=== PATIENT | female | born 2000 | race Caucasian/White ===

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

== ENCOUNTER 2021-11-03 20:11 | Emergency (ER) | payer OTHER ==
--- OUTSIDE RECORDS SUMMARY | 2021-11-03 20:22 | XMS REPORT | Continuity of Care Document ---
:2000 Author Organization [facility] t Address [address] [place] [address] Care Team Providers Name Role Phone Jennifer Mendoza Primary Care Physician [phone] JESSI STEINER Attending Clinician Unavailable Jessi Davison Attending Clinician [phone] JENNIFER HORNRE Attending Clinician Unavailable Visit, [facility] Nurse Attending Clinician Unavailable Jennifer Mendoza Attending Clinician Low Galindo MD Attending Clinician Shilpa Rodriguez MDh Attending Clinician ERIN SIBLEY Attending Clinician Unavailable Low Galindo MD Admitting Clinician LOW GALINDO Admitting Clinician Unavailable Payers Payer Name Policy Type Policy Number Effective Date Expiration Date Ronaldo cedeño [facility] PINEDA THOMAS [id number] 2021 00:00:00 PLUS Problems Condition Condition Condition Status Onset Resolution Last Treating Co mments Source Name Details Category Date Date Treatment Clinician Date Routine Routine Disease Active Univers 7-18 [place] [facility] [place] Disease Active Univers (spontaneo (spontaneo 6-23 it y of [place] vaginal [place] 00 [facility] Single Single Disease Active Univers live live 6-23 it y of 00:00: [place] 00 [facility] Gestationa Gestationa Disease Active U nivers l l 6-23 ity of hypertensi hypertensi [place] Decreased Decreased Disease Active Uni vers platelet platelet 6-23 ity of count count 00:00: [place] [facility] Branch 39 weeks 39 weeks Disease Active Unive rs gestation gestation 6-21 ity of of of 00:00: [place] 00 [facility] Elevated Elevated Disease Active Unive rs blood blood 4-13 ity of pressure pressure 00:00: [place] reading reading 00 Medical without without Branch diagnosis diagnosis of of hypertensi hypertensi on on Chlamydia Chlamydia Disease Active 2020-03 Overview: Univers infection infection 2-21 Formattin i ty of affecting affecting 00:00: g of this [place] , , 00 note Me dical antepartum antepartum might be Branch different from the original. mirella neg Susceptibl Susceptibl Disease Active 2020-03 U nivers e to e to 1-24 ity of varicella varicella 00:00: [place] s (non-immun (non-immun 00 Me dical e), e), Branch currently currently Rubella Rubella Disease Active 2020-03 Univers non-immune non-immune 1-24 it y of status, status, 00:00: [place] antepartum antepartum 00 Me dical Branch Vomiting Vomiting Disease Active 2020-03 Unive rs or nausea or nausea 1-22 ity of of of 00:00: [place] 00 [facility] Multiparit Multiparit Disease Active 2020-03 U nivers y y 1-22 ity of 00:00: [place] 00 [facility] Branch BMI BMI Disease Active 2020-03 Univers 28.0-28.9, 28.0-28.9, 1-22 it y of adult adult 00:00: [place] [facility] Supervisio Supervisio Disease Active 2019-0 U nivers n of high n of high 2-04 ity of risk risk 00:00: [place] 00 Medi sue in second in second Bran ch trimester trimester Allergies, Adverse Reactions, Alerts Allergy Allergy Status Severity Reaction(s) Onset Inactive Treating Comm ents Source Name Type Date Date Clinician NO KNOWN Drug Active Univers ALLERGIE Class ity of S [facility] Social History Social Habit Start Date Stop Date Quantity Comments Source ASSERTION 2020-12-02 [facility] 00:00:00 [facility] Exposure to 2021-09-10 2021-09-20 Not sure [facility] SARS-CoV-2 00:00:00 08:11:00 [facility] (event) [place] Tobacco use and 2021-09-20 2021-09-20 Smokeless tobacco Un iversity of exposure 00:00:00 00:00:00 non-user [facility] Alcohol intake 2021-09-20 2021-09-20 Current [facility] 00:00:00 00:00:00 non-drinker of [facility] alcohol (finding) Branch Sex Assigned At 2000 2000 Universit y of 00:00:00 00:00:00 [facility] Smoking Status Start Date Stop Date Source Never smoked tobacco [facility] Medications Ordered Filled Start Stop Current Ordering Indication Dosage Frequency Signature Comments Components Source Medication Medication Date Date Medication? Clinician (SIG) Name Name Yes [id number] 1{tbl} Take 1 U nivers [id number] 6-23 tablet by ity of fum-folic 00:00: mouth [place] () 00 daily. Medical 27 mg iron- Branch 1 mg folic tablet docusate Yes [id number] 200mg Take 2 Un rick 100 mg 6-23 capsules ity of capsule 00:00: by mouth [place] 00 once daily Medical as needed Branch for Constipati on. ferrous Yes [id number] 325mg Take 1 Uni vers sulfate 325 6-23 tablet by ity of mg (65 mg 00:00: mouth 2 [place] iron) 00 (two) Medical tablet times Branch daily. ibuprofen Yes [id number] 600mg Take 1 U nivers 600 mg 6-23 tablet by ity of tablet 00:00: mouth [place] 00 every 6 Medical (six) Branch hours as needed (Pain). Take with food or milk. 2022-0 Yes [id number] 1{tbl} Take 1 U nivers [id number] 6-23 tablet by ity of fum-folic 00:00: mouth [place] () 00 daily. Medical 27 mg iron- Branch 1 mg folic tablet docusate 0 Yes [id number] 200mg Take 2 Un irck 100 mg 6-23 capsules ity of capsule 00:00: by mouth [place] 00 once daily Medical as needed Branch for Constipati on. ferrous 0 Yes [id number] 325mg Take 1 Uni vers sulfate 325 6-23 tablet by ity of mg (65 mg 00:00: mouth 2 [place] iron) 00 (two) Medical tablet times Branch daily. ibuprofen 0 Yes [id number] 600mg Take 1 U nivers 600 mg 6-23 tablet by ity of tablet 00:00: mouth [place] 00 every 6 Medical (six) Branch hours as needed (Pain). Take with food or milk. 0 Yes [id number] 1{tbl} Take 1 U nivers [id number] 6-23 tablet by ity of fum-folic 00:00: mouth [place] () 00 daily. Medical 27 mg iron- Branch 1 mg folic tablet docusate 0 Yes [id number] 200mg Take 2 Un rick 100 mg 6-23 capsules ity of capsule 00:00: by mouth [place] 00 once daily Medical as needed Branch for Constipati on. ferrous 0 Yes [id number] 325mg Take 1 Uni vers sulfate 325 6-23 tablet by ity of mg (65 mg 00:00: mouth 2 [place] iron) 00 (two) Medical tablet times Branch daily. ibuprofen 0 Yes [id number] 600mg Take 1 U nivers 600 mg 6-23 tablet by ity of tablet 00:00: mouth [place] 00 every 6 Medical (six) Branch hours as needed (Pain). Take with food or milk. 2021-0 Yes [id number] 1{tbl} Take 1 U nivers [id number] 6-23 tablet by ity of fum-folic 00:00: mouth [place] () 00 daily. Medical 27 mg iron- Branch 1 mg folic tablet docusate 0 Yes [id number] 200mg Take 2 Un rick 100 mg 6-23 capsules ity of capsule 00:00: by mouth [place] 00 once daily Medical as needed Branch for Constipati on. ferrous 2021-0 Yes [id number] 325mg Take 1 Uni vers sulfate 325 6-23 tablet by ity of mg (65 mg 00:00: mouth 2 [place] iron) 00 (two) Medical tablet times Branch daily. ibuprofen 2021-0 Yes [id number] 600mg Take 1 U nivers 600 mg 6-23 tablet by ity of tablet 00:00: mouth [place] 00 every 6 Medical (six) Branch hours as needed (Pain). Take with food or milk. rho(D) 2021-0 Yes 300ug 300 mcg, Univer s immune 08-25 Intramuscu ity of globulin 21:22: lar, ONCE, N[place] as (RHOGAM) 45 For 1 Medical syringe 300 dose, Branch mcg Conditiona l, Routine benzocaine- 2021-0 Yes Topical, Un rick menthol 08-25 PRN, ity of (DERMOPLAST 21:22: Starting [place] ) 20-0.5 % 43 on Mon Medical topical 08/25/21 at Branch spray 1622, Until Discontinu ed, Routine, Perineum discomfort ibuprofen 2021-0 Yes 600mg 600 mg, Univ ers (IBU) 08-25 Oral, ity of tablet 600 21:22: Q6HPRN, [place] mg 43 Starting Medical on Mon Branch 08/25/21 at 1622, Until Discontinu ed, Routine, Pain (scale 4-6) acetaminoph 2021-0 Yes 650mg 650 mg, Un rcik en 08-25 Oral, ity of (TYLENOL) 21:22: Q6HPRN, [place] tablet 650 43 Starting Medic al mg on Mon Branch 08/25/21 at 1622, Until Discontinu ed, Routine, Pain (scale 1-3) diphenhydrA 2021-0 Yes 25mg 25 mg, Univ ers MINE 08-25 Oral, ity of (BENADRYL) 21:22: Q6HPRN, [place] tablet 25 43 Starting Medica l mg on Mon Branch 08/25/21 at 1622, Until Discontinu ed, Routine, Sleep, Itching ondansetron 2021-0 Yes 4mg 4 mg, Slow Univers (ZOFRAN 08-25 IV Push, ity of (PF)) 21:22: Q8HPRN, [place] injection 4 43 Starting Medi sue mg on Mon Branch 08/25/21 at 1622, Until Discontinu ed, Routine, Nausea and Vomiting (N/V) simethicone Yes 160mg 160 mg, Un rick (GAS RELIEF 08-25 Oral, ity of (SIMETHICON 21:22: PC+HSPRN, [place] E)) 43 Starting Medical chewable on Mon tablet 160 08/25/21 at mg 1622, Until Discontinu ed, Routine, Gas docusate Yes 200mg 200 mg, Unive rs (COLACE) 08-25 Oral, ity of capsule 200 21:22: QDAILYPRN, [place] mg 43 Starting Medical on Mon Branch 08/25/21 at 1622, Until Discontinu ed, Routine, Constipati on magnesium Yes 30mL 30 mL, Univer s hydroxide 08-25 Oral, ity of (MILK OF :22: QDAILYPRN, [place] as MAGNESIA) 43 Starting Medica l 400 mg/5 mL on Mon Branch suspension 08/25/21 at 30 mL 1622, Until Discontinu ed, Routine, Constipati on morpHINE (4 2021- No 4mg 4 mg, Slow Univers mg/mL) 08-25 IV Push, ity of injection 4 18:15: 17:05 ONCE, 1 [place] mg 00 :00 dose, On Medical Mon Branch 08/25/21 at 1315, Routine oxytocin 2021- No 300mL/h 300 mL/hr, Univers (PITOCIN) 08-25 IV ity of 30 units in 16:57: 21:22 Infusion, [place] NS 500 mL 27 :45 SEE-INSTRU Medi sue IV infusion CTIONS, Branc h Starting on Mon08/25/[address] at 300 mL/hr for 1 hr then 150 mL/hr for 1 hr. & nbsp; For post delivery uterotonic
butorphanol 2021- No 1mg 1 mg, IV U nivers (STADOL) 08-25 Push, ity of injection 1 11:45: 10:40 ONCE, 1 [place] mg 00 :00 dose, On Medical [facility] Branch 08/25/21 at 0645, Routine proMETHazin 2021- No 12.5mg 12.5 mg, Univers e 08-25 IV ity of (PHENERGAN) 11:45: 11:41 Piggyback, [place] 12.5 mg in 00 :00 at 200 Medical NS 50 mL IV mL/hr Branch piggyback Administer (CNR) over 15 Minutes, ONCE, 1 dose, On Mon08/25/21 at 0645, Routine proMETHazin 2021- No 25mg 25 mg, IV Univers e 08-25 Piggyback, ity of (PHENERGAN) 07:15: 07:11 at 200 [place] as 25 mg in NS 00 :00 mL/hr Medical 50 mL IV Administer Branc h piggyback over 15 (CNR) Minutes, ONCE, 1 dose, On Mon08/25/21 at 0215, Routine butorphanol 2021- No 1mg 1 mg, IV U nivers (STADOL) 08-25 Push, ity of injection 1 07:15: 06:20 ONCE, 1 [place] mg 00 :00 dose, On Medical [facility] Branch 08/25/21 at 0215, Routine oxytocin 2021- No 2mU/min at 2-40 Un rick (PITOCIN) 08-25 mL/hr, IV ity of 30 units in 04:20: 21:22 Infusion, [place] NS 500 mL 12 :45 TITRATE, Medica l IV infusion Starting Bran ch on Mon08/24/21 at 2320, Until Mon08/25/21 at 1622, MORRIS D5W-LR IV 2021- No 1000mL at 125 Uni vers infusion 08-25 mL/hr, IV ity o f 1,000 mL 03:30: 21:22 Infusion, [place] as 00 :45 CONTINUOUS Medical , Starting Branch on Mon08/24/21 at 2230, Until Mon08/25/21 at 1622, Routine lactated 2021- No 500mL at 999 Unive rs ringers IV 08-25 mL/hr, 500 it y of infusion 03:19: 21:22 mL, IV [place] 500 mL 05 :45 Infusion, Medical PRN - SEE Branch NATALIIAIO NS, Starting on Mon08/24/21 at 2219, Until Mon08/25/21 at 1622, Routine PNV 67-iron 2020-03 Yes [id number] 1{capsu Take 1 Univers ps-folate 1-22 le} capsule by ity of no.1-dha 00:00: mouth [place] (VITAFOL 00 daily. Medical ULTRA) 29 Branch mg iron- 1 mg-200 mg Cap PNV 67-iron 2020-03 Yes [id number] 1{capsu Take 1 Univers ps-folate -22 le} capsule by ity of no.1-dha 00:00: mouth [place] (VITAFOL 00 daily. Medical ULTRA) 29 Branch mg iron- 1 mg-200 mg Cap PNV 67-iron 2020-03- No [id number] 1{capsu Take 1 Univers ps-folate 1-22 -23 le} capsule by ity of no.1-dha 00:00: 00:00 mouth [place] (VITAFOL 00 :00 daily. Medical ULTRA) 29 Branch mg iron- 1 mg-200 mg Cap PNV 67-iron 2020-03- No [id number] 1{capsu Take 1 Univers ps-folate -22 - le} capsule by ity of no.1-dha 00:00: 00:00 mouth [place] (VITAFOL 00 :00 daily. Medical ULTRA) 29 Branch mg iron- 1 mg-200 mg Cap Immunizations Ordered Filled Immunization Date Status Comments [facility] Immunization Name Name HPV9 2021 Completed University of 00:00: [facility] HPV9 2021 Completed University of 00:00: [facility] HPV9 2021 Completed University of 00:00:00 [facility] TDAP 2021-06-02 Completed University of 00:00: [facility] TDAP 2021-06-02 Completed University of 00:00: [facility] TDAP 2021-06-02 Completed University of 00:00: [facility] TDAP 2021-06-02 Completed University of 00:00:00 [facility] TDAP 2021-06-02 Completed University of 00:00: [facility] TDAP 2021-06-02 Completed University of 00:00:00 [place] [facility] Vital Signs Vital Name Observation Time Observation Value Comments Source Systolic blood 2021-09-20 13:11:00 124 mm[Hg] Univer sity of pressure [place] [facility] Diastolic blood 2021-09-20 13:11:00 81 mm[Hg] Unive rsity of pressure [place] [facility] Heart rate 2021-09-20 13:11:00 67 /min [facility] [place] [facility] Body temperature 2021-09-20 13:11:00 36.39 Meka Univ [facility] [place] [facility] Respiratory rate 2021-09-20 13:11:00 18 /min Univ [facility] [place] [facility] Body height 2021-09-20 13:11:00 170.2 cm [facility] [place] [facility] Body weight 2021-09-20 13:11:00 80.797 kg [facility] [place] [facility] BMI 2021-09-20 13:11:00 27.90 kg/m2 [facility] [place] [facility] Systolic blood 2021-09-03 16:18:00 120 mm[Hg] manual Univer sity of pressure [place] [facility] Diastolic blood 2021-09-03 16:18:00 92 mm[Hg] manual Unive rsity of pressure [place] [facility] Heart rate 2021-09-03 15:08:00 104 /min [facility] [place] [facility] Body temperature 2021-09-03 15:08:00 36.72 Meka [facility] [place] [facility] Respiratory rate 2021-09-03 15:08:00 18 /min Univ ersity [facility] [place] [facility] Body height 2021-09-03 15:08:00 170.2 cm [facility] [place] [facility] Body weight 2021-09-03 15:08:00 81.466 kg [facility] [place] [facility] BMI 2021-09-03 15:08:00 28.13 kg/m2 [facility] [place] [facility] Systolic blood 2021 16:26:00 121 mm[Hg] Univer sity of pressure [place] [facility] Diastolic blood 2021 16:26:00 82 mm[Hg] Unive rsity of pressure [place] [facility] Heart rate 2021 16:26:00 75 /min [facility] [place] [facility] Body temperature 2021 16:26:00 36.89 Meka [facility] Respiratory rate 2021 16:26:00 18 /min [facility] Oxygen saturation in 2021 16:26:00 98 /min [facility] Arterial blood by [facility] Pulse oximetry Branch Systolic blood 2021-08-24 18:13:00 135 mm[Hg] [facility] Diastolic blood 2021-08-24 18:13:00 76 mm[Hg] [facility] Heart rate 2021-08-24 18:13:00 85 /min [facility] Body temperature 2021-08-24 18:07:00 36.56 Meka [facility] Body weight 2021-08-24 18:07:00 89.472 kg [facility] Procedures Procedure Date / Time Performing Clinician Source Performed POCT URINALYSIS W/O 2021-09-03 15:30:00 Shelia Teixeira [facility] SPECIFIC GRAVITY [facility] EXTRA TUBE LAV 2021 10:58:00 Low Galindo [facility] CBC WITH DIFF 2021 09:56:00 [facility]isa [facility] VENOUS CORD GAS 2021-08-25 17:01:00 Vikas Cabral [facility] SGOT (ASPARTATE AMINO 2021-08-25 05:18:00 Ramirez [place] [facility] TRANSFER) Medical Branch CREATININE 2021-08-25 05:18:00 Ramirez [facility] ALANINE AMINO 2021-08-25 05:18:00 Ramirez [facility] TRANSFERASE(SGPT [facility] LACTATE DEHYDROGENASE 2021-08-25 05:18:00 Ramirez, [facility] URIC ACID 2021-08-25 05:18:00 Ramirez [facility] URINALYSIS 2021-08-25 05:18:00 Ramirez, [facility] PROTEIN CREAT RATIO URINE 2021-08-25 05:18:00 Linette Guzmán [facility] RANDOM [facility] CBC WITH DIFF 2021-08-25 03:37:00 JenusaitisVikas [facility] HEPATITIS B SURFACE 2021-08-25 03:37:00 JenusaitisVikas [facility] ANTIGEN [facility] HIV 1/2 AG-AB WITH REFLEX 2021-08-25 03:37:[address] [facility] GALV ONLY - SYPHILIS 2021-08-25 03:37:00 Jenusaitis cyndy [facility] IGG/IGM [facility] HB ABO GROUPING 2021-08-25 03:26:00 Jenusaitis [facility] RHO (D) IMMUNE GLOBULIN 2021-08-25 03:26:00 Bo [facility] COVID-19 (ID NOW RAPID 2021-08-25 02:29:00 Mateo [facility] TESTING) Medical Branch LAB ONLY COVID 2021-08-25 02:29:00 Mateo [facility] INTERPRETATION [facility] Encounters Start End Encounter Admission Attending Care Care Encounter Source Date/Time Date/Time Type Type Clinicians Facility Department ID 2021-10-11 2021-10-11 Outpatient R AKINGANESHPE, [facility] [id number] Univers 08:15:00 08:15:00 JESSI [id number] sumanth o [facility] 2021-10-11 2021-10-11 Outpatient R AKINSIPE, [facility] [id number] Univers 08:15:00 08:15:00 JESSI ity o [facility] 2021-09-20 2021-09-20 Outpatient R AKINSIPE, [facility] [id number] Univers 08:00:00 08:28:52 JESSI ity o [facility] 2021-09-20 2021-09-20 Routine Akinsipe, [facility] [id number] Univers 08:00:00 08:28:52 Jessi Douglass CLINICAL LABORATORY MEDICAL DIRECTOR [id number] ity of Visit REGIONAL [id number] Neri as MATERNAL [id number] Med ical & CHILD [address] [place] [address] 2021-09-20 2021-09-20 Outpatient R AKINTELLO, [facility] [id number] Univers 08:00:00 08:00:00 JESSI [id number] ity o f [facility] 2021-09-03 2021-09-03 Outpatient R HORNER [facility] [id number] Univers 10:00:00 10:39:25 JENNIFER ity o f [facility] 2021-09-03 2021-09-03 Nurse Visit, Khurram-Rmchp Nurse [facility] [id number] Univers 10:00:00 10:39:25 Visit Jennifer Horner CLINICAL LABORATORY MEDICAL DIRECTOR [id number] ity of [facility] [id number] Neri as MATERNAL [phone] [facility] ical & CHILD [address] [place] [address] 2021-08-24 2021 [facility] ALEXANDRA Galindo [id number] Univers 21:03:00 14:56:00 Encounter Low Lon SURI [id number] ity of [facility] [id number] Neri as [id number] [facility] [address] [place] 2021-08-25 2021-08-25 Anesthesia [facility] ALEXANDRA [id number] Univers 20:02:15 20:02:15 Event SURI [id number] it y of [facility] [id number] Neri as [id number] [facility] [address] [place] 2021-08-24 2021-08-24 Anesthesia [facility] ALEXANDRA [id number] Univers 21:22:37 21:22:37 Event SURI [id number] it y of [facility] [id number] Neri as [id number] [address] 2021-08-24 2021-08-24 Routine Akinsipe, [facility] [id number] Univers 13:00:00 13:20:08 Jessi Douglass CLINICAL LABORATORY MEDICAL DIRECTOR [id number] ity of Visit [facility] [id number] Neri as MATERNAL [phone] Med ical & CHILD [address] [place] [address] 2021-08-24 2021-08-24 Outpatient R OBDULIA [facility] NELSON [id number] Univers 13:00:00 13:20:08 JESSI ity o f [facility] 2021-02-11 2021-02-11 Outpatient P MARYJO [facility] [id number] [facility] 08:00:00 08:44:44 ERIN ity [facility] Results Test Description Test Time Test Comments Results Result Comments Source POCT URINALYSIS W/O SPECIFIC GRAVITY 2021-09-03 15:30:00 Test Item Value Reference Range Interpretation Comme nts POCT PH U (test code = 3254) . 5-8 POCT U LEUK EST (test code = 3263) . Negative - Negative POCT U NIT (test code = 3262) . Negative - Negative POCT U PROT (test code = 3259) trace Negative - Negative POCT U GLU (test code = 3256) negative Negative - Negative POCT U KETONE (test code = 3258) . Negative - Negative POCT U BLD (test code = 3257) . Negative - Negative [facility] with [id number] 11:06:47 Test Item Value Reference Range Interpretation Comments WBC (test code = See_Comment [Automated 9067-2) message] The sy stem which generated this result transmitted reference range : 4.30 - 11.10 10*3/?L. The reference range was not used to interpret this result as normal/abnormal . RBC (test code = See_Comment L [Automated 654-8) message] The sy stem which generated this result transmitted reference range : 3.93 - 5.25 10*6/?L. The reference range was not used to interpret this result as normal/abnormal . HGB (test code = 10.3 g/dL 11.6-15.0 L 718-7) HCT (test code = 31.2 % 35.7-45.2 L 4544-3) MCV (test code = 89.7 fL 80.6-95.5 787-2) MCH (test code = 29.6 pg 25.9-32.8 785-6) MCHC (test code = 33.0 g/dL 31.6-35.1 786-4) RDW-SD (test code = 44.9 fL 39.0-49.9 40058-8) RDW-CV (test code = 13.8 % 12.0-15.5 788-0) PLT (test code = See_Comment L [Automated 777-3) message] The sy stem which generated this result transmitted reference range : 166 - 358 10*3/ ?L. The reference r christie was not used to interpret this result as normal/abnormal . MPV (test code = 12.6 fL 9.5-12.9 92311-6) NRBC/100 WBC (test See_Comment [Automat ed code = 3242051143) message] The system which generated this result transmitted reference range : 0.0 - 10.0 /100 WBCs. The refer ence range was not u sed to interpret th is result as normal/abnormal . NRBC x10^3 (test code <0.01 See_Comment [Auto mated = [id number]) message] The s ystem which generated this result transmitted reference range : 10*3/?L. The reference range was not used to interpret this result as normal/abnormal . GRAN MAT (NEUT) % 69.8 % (test code = 770-8) IMM GRAN % (test code 0.80 % = 4484040810) LYMPH % (test code = 21.0 % 736-9) MONO % (test code = 7.7 % 5905-5) EOS % (test code = 0.4 % 713-8) BASO % (test code = 0.3 % 706-2) GRAN MAT x10^3(ANC) 6.82 10*3/uL 1.88-7.09 (test code = 9642049523) IMM GRAN x10^3 (test 0.08 10*3/uL 0.00-0.06 H code = 4977824120) LYMPH x10^3 (test code 2.05 10*3/uL 1.32-3.29 = 731-0) MONO x10^3 (test code 0.75 10*3/uL 0.33-0.92 = 742-7) EOS x10^3 (test code = 0.04 10*3/uL 0.03-0.39 711-2) BASO x10^3 (test code 0.03 10*3/uL 0.01-0.07 = 704-7) Lab Interpretation Abnormal (test code = 26333-2) [facility] IMMUNE [id number] 23:35:13 Test Item Value Reference Range Interpretation Comments RHIG CANDIDATE? No- see comment Patient i s not a (test code = candidate for R hIg- 5055) Patient is Rh Positive.Perfor med at [facility] Laboratory Services - [facility] Blood [id number] [place] [address] [id number] Free: [phone] A No. [id number] [facility] CORD [id number] 17:13:01 Test Item Value Reference Range Interpretation Comments BASE EXCESS, CORD mEq/L (test code = 6099430538) AC PH, CORD (BEAKER) 7.18-7.38 (test code = 0406064011) PC02, CORD (test code See_Comment [Auto mated message] The = [id number]) system which g enerated this result transmit suyapa reference range : 32 - 66 mmHg. The refer ence range was not used to interpret this result as normal/abnormal . PO2, CORD (test code See_Comment [Autom ated message] The = 3747693067) system which g enerated this result transmit suyapa reference range : 10 - 30 mmHg. The refer ence range was not used to interpret this result as normal/abnormal . BICARBONATE, CORD See_Comment [Automate d message] The (test code = system which ge nerated this 2365058686) result transmit suyapa reference range : 17 - 27 mEq/L. The refe rence range was not used to interpret this result as normal/abnormal . [facility] AllianceVEN[facility] CORD [id number] 17:11:40 Test Item Value Reference Range Interpretation Comments VENOUS BASE EXCESS, mEq/L CORD (test code = 9570393658) VENOUS PH, CORD (test 7.25-7.45 code = 2884930793) VENOUS PC02, CORD See_Comment [Automate d message] The (test code = system which ge nerated 4467689000) this result tra nsmitted reference range : 27 - 49 mmHg. The refer ence range was not used to interpret this result as normal/abnormal . VENOUS PO2, CORD (test See_Comment [Aut omated message] The code = 1987994181) system [facility] generated this result tra nsmitted reference range : 17 - 41 mmHg. The refer ence range was not used to interpret this result as normal/abnormal . VENOUS BICARBONATE, See_Comment [Automa suyapa message] The CORD (test code = system whi ch generated 1112311217) this result tra nsmitted reference range : 12 - 29 mEq/L. The refe rence range was not used to interpret this result as normal/abnormal . [facility] AllianceGAL ONLY - SYPHILIS [id number] 16:20:41 Test Item Value Reference Range Interpretation Comments Syphilis IgG/IgM (test Non-reactive Non-reactive code = 20362-4) LEWIS (test code = LEWIS) Non-reactive - No serologic evidence of T. pallidum infection. Cannot exclude incubating or early syphilis. Submit a second specimen in 2-4 weeks if syphilis is clinically suspected. Equivocal - Further testing to follow. Reactive - Further testing to follow. Lab Interpretation (test Normal code = 85450-8) [facility] AllianceHepatitis B Surface [id number] 09:33:43 Test Item Value Reference Range Interpretation Comments HBsAg Semi-Quantitative (test code = Negative Negative 5195-3) General acute hospital 1/2 AG-AB WITH [id number] 07:29:32 Test Item Value Reference Range Interpretation Comments HIV Negative Negative Semi-quantitative (test code = 96720-1) LEWIS (test code = Non-reactive for HIV-1 LEWIS) antigen and HIV-1/HIV-2 antibodies. ?No laboratory evidence of HIV infection. ?Repeat in 2-4 weeks if acute HIV infection is suspected. [facility] AllianceUric Acid [id number] 06:34:29 Test Item Value Reference Range Interpretation Comments URIC ACID (test code = 1413275769) 4.8 mg/dL 2.9-6.0 Lab Interpretation (test code = Normal 89894-8) [facility] AllianceSer [id number] 06:34:29 Test Item Value Reference Range Interpretation Comments CREATININE (test code 0.58 mg/dL 0.50-1.04 = 3945076536) eGFR (test code = mL/min/1.73m2 8745358421) LEWIS (test code = LEWIS) Association of Glomerular Filtration Rate (GFR) and Staging of Kidney Disease* + + +- +| GFR (mL/min/1.73 m2) ?| With Kidney Damage ?| ?Without Kidney Damage+ ------+ ----+ ------+| ?>90 ?| ?Stage one ?| ? Normal ?+ -+ + -+| ?60-89 ?| ?Stage two ?| ? Decreased GFR ? + + +- +| ?30-59 ?| ?Stage three ?| ? Stage three ? + + +- +| ?15-29 ?| ?Stage four ? | ? Stage four ?+ -+ + -+| ?<15 (or dialysis) ? ?| ?Stage five ? | ? Stage five ?+ -+ + -+ *Each stage assumes the associated GFR level has been in effect for at least three months. ?Stages 1 to 5, with or without kidney disease, indicate chronic kidney disease. Notes: Determination of stages one and two (with eGFR >59mL/min/1.73 m2) requires estimation of kidney damage for at least three months as defined by structural or functional abnormalities of the kidney, manifested by either:Pathological abnormalities or Markers of kidney damage (including abnormalities in the composition of the blood or urine or abnormalities in imaging tests). [facility] AllianceSGOT (Asparate Amino Transfer)2021-08-25 06:34:29 Test Item Value Reference Range Interpretation Comments AST(SGOT) (test code = 5164914659) 18 U/L 13-40 Lab Interpretation (test code = Normal 00760-6) [facility] AllianceAlanine Amino Transferase (SGPT)2021-08-25 06:34:29 Test Item Value Reference Range Interpretation Comments ALTv (test code = 1742-6) 10 U/L 5-35 Lab Interpretation (test code = Normal 51471-9) [facility] AllianceLactate [id number] 06:21:29 Test Item Value Reference Range Interpretation Comments LDH (test code = 2279571297) 436 U/L 300-600 Lab Interpretation (test code = Normal 69189-7) [facility] AllianceType and Screen - ONCE [id number] 04:09:47 Test Item Value Reference Range Interpretation Comments ABO & RH (test code O POSITIVE Performe d at [facility] = 20) [facility] [address] [facility] [place] [address] Free: [phone] A No. [id number] IAT (test code = Negative Performed a t [facility] 1185) [facility] [address] [facility] [place] [address] Free: [phone] A No. [id number] [facility] AllianceCBC with [id number] 03:58:29 Test Item Value Reference Range Interpretation Comments WBC (test code = See_Comment [Automated 6690-2) message] The sy stem which generated this result transmitted reference range : 4.30 - 11.10 10*3/?L. The reference range was not used to interpret this result as normal/abnormal . RBC (test code = See_Comment [Automated 209-8) message] The sy stem which generated this result transmitted reference range : 3.93 - 5.25 10*6/?L. The reference range was not used to interpret this result as normal/abnormal . HGB (test code = 11.5 g/dL 11.6-15.0 L 718-7) HCT (test code = 35.3 % 35.7-45.2 L 4544-3) MCV (test code = 89.6 fL 80.6-95.5 787-2) MCH (test code = 29.2 pg 25.9-32.8 785-6) MCHC (test code = 32.6 g/dL 31.6-35.1 786-4) RDW-SD (test code = 43.8 fL 39.0-49.9 18626-0) RDW-CV (test code = 13.3 % 12.0-15.5 788-0) PLT (test code = See_Comment L [Automated 777-3) message] The sy stem which generated this result transmitted reference range : 166 - 358 10*3/ ?L. The reference r christie was not used to interpret this result as normal/abnormal . MPV (test code = 12.6 fL 9.5-12.9 24945-2) NRBC/100 WBC (test See_Comment [Automat ed code = 7992666746) message] The system which generated this result transmitted reference range : 0.0 - 10.0 /100 WBCs. The refer ence range was not u sed to interpret th is result as normal/abnormal . NRBC x10^3 (test code <0.01 See_Comment [Auto mated = 7259423356) message] The s ystem which generated this result transmitted reference range : 10*3/?L. The reference range was not used to interpret this result as normal/abnormal . GRAN MAT (NEUT) % 59.4 % (test code = 770-8) IMM GRAN % (test code 0.90 % = 8613662585) LYMPH % (test code = 30.2 % 736-9) MONO % (test code = 8.6 % 5905-5) EOS % (test code = 0.5 % 713-8) BASO % (test code = 0.4 % 706-2) GRAN MAT x10^3(ANC) 4.63 10*3/uL 1.88-7.09 (test code = 3746268065) IMM GRAN x10^3 (test 0.07 10*3/uL 0.00-0.06 H code = 8736750440) LYMPH x10^3 (test code 2.35 10*3/uL 1.32-3.29 = 731-0) MONO x10^3 (test code 0.67 10*3/uL 0.33-0.92 = 742-7) EOS x10^3 (test code = 0.04 10*3/uL 0.03-0.39 711-2) BASO x10^3 (test code 0.03 10*3/uL 0.01-0.07 = 704-7) Lab Interpretation Abnormal (test code = 52851-2) [facility]"
[2021-11-03] MEDS ORDERED: IBUPROFEN 400 MG TAB ONE (20:40)
[2021-11-03] MEDS ORDERED: NA CHLORIDE 0.9% 1,000 ML ONE (21:46)
--- NOTE | 2021-11-03 21:53 | RAD REPORT ---
EXAM DESCRIPTION: Ghislaine Single View11/03/2021 8:47 pm CLINICAL HISTORY: Fever COMPARISON: none FINDINGS: The lungs appear clear of acute infiltrate. The heart is normal size IMPRESSION: No acute abnormalities displayed
[2021-11-03 22:03] LABS: Absolute Lymphocytes (CBC) 0.8 K/uL (0.7-4.9); Hematocrit 38.1 % (36.0-45.0); Lymphocytes % 8.2 % (15.3-44.8); MCV 86.6 fL (80-100)
--- NOTE | 2021-11-03 22:18 | RAD REPORT ---
EXAM DESCRIPTION: US - Abdomen Exam Limited - 11/03/2021 9:10 pm CLINICAL HISTORY: Abdominal pain. Right upper quadrant pain COMPARISON: None. FINDINGS: The patient was not NPO. This results in the gallbladder being contracted which limits mildred luation. A gallstone is not seen. Gallbladder wall is not thickened. The biliary tree is normal caliber. IMPRESSION: Grossly normal gallbladder ultrasound
[2021-11-03 22:19] LABS: Albumin 3.6 g/dL (3.4-5.0); Bilirubin Total 0.5 mg/dL (0.2-1.0); Potassium 3.5 mmol/L (3.5-5.1); Protein, Total 7.5 g/dL (6.4-8.2)
[2021-11-03 22:31] LABS: Urine Blood 2+ (Negative); Urine Glucose Negative (Negative); Urine Protein 3+ (Negative); Urine Specific Gravity 1.025 (1.005-1.030); Urine pH 5.5 (5.0-7.0)
[2021-11-03 22:46] LABS: Urine Specific Gravity/Preg 1.025 (1.005-1.030)
[2021-11-03 22:52] LABS: Protime INR 1.14
[2021-11-03] MEDS ORDERED: NA CHLORIDE 0.9% 50 ML ONE (22:56)
[2021-11-03] MEDS ORDERED: CEFTRIAXONE 1000 MG/VIAL ONE (22:56)
[2021-11-03 23:02] LABS: Urine Bacteria 20-50 /HPF (<20); Urine Mucus 2+ /HPF (None Seen); Urine RBC >50 /HPF (None Seen); Urine WBC Clump Rare /HPF (None Seen)
--- NOTE | 2021-11-03 23:44 | ER ---
[facility]urse's Notes [facility] Name: Marlene Gates Age: 21 yrs Sex: Female : 2000 Arrival Date: 11/03/2021 Time: 20:17 Bed 12 Private MD: Diagnosis: Pyelonephritis acute Presentation: 11/03 20:22 Chief complaint: Right flank pain, fever, and dizziness x 2-3 days. Coronavirus screen: hb At this time, the client does not indicate any symptoms associated with coronavirus-19. Ebola Screen: No symptoms or risks identified at this time. Risk Assessment: Do you want to hurt yourself or someone else? Patient reports no desire to harm self or others. Onset of symptoms was November 01, 2021. 20:22 Acuity: KARLOS 3 hb 20:22 Method Of Arrival: Wheelchair hb 20:30 Initial Sepsis Screen: Does the patient meet any 2 criteria? HR > 90 bpm. No. Patient's vc1 initial sepsis screen is negative. Does the patient have a suspected source of infection? Yes: Dysuria/Frequency/Urgency/UTI. Historical: - Allergies: 20:24 No Known Allergies; hb - PMHx: 20:24 Asthma; hb - Immunization history:: Adult Immunizations up to date, Client reports having NOT received the Covid vaccine. Last tetanus immunization: up to date. - Family history:: not pertinent. - Social history:: Smoking status: Patient denies any tobacco usage or history of. - Hospitalizations: : No recent hospitalization is reported. Screenin:30 Abuse screen: Denies threats or abuse. Denies injuries from another. Nutritional kb3 screening: No deficits noted. Tuberculosis screening: No symptoms or risk factors identified. Fall Risk None identified. Assessment: 21:30 General: Appears in no apparent distress. comfortable, Behavior is calm, cooperative, kb3 Received care of pt from lobby, ambulatory to restroom, urine specimen collected. Pt to room 12 and placed on all monitors. Pt reports dizziness, fever, right-sided abdominal pain wrapping around to right flank x2 days. Denies pain with urination, cough, congestion. 21:30 Pain: Complains of pain in right upper quadrant and right lower quadrant Pain radiates kb3 to right low back Pain currently is 5 out of 10 on a pain scale. Quality of pain is described as sharp, Pain began 2-3 days ago. GI: Bowel sounds present X 4 quads. Abd is soft Abdomen is tender to palpation in right upper quadrant and right lower quadrant. : CVA tenderness noted on right Reports right flank pain. Vital Signs: 20:22 BP 128 / 81; Pulse 116; Resp 20; Temp 101.1(TE); Pulse Ox 100% on R/A; Weight 77.11 kg; hb Height 5 ft. 7 in. (170.18 cm); Pain 0/10; 23:00 BP 113 / 72; Pulse 100; Resp 18; Temp 100; Pulse Ox 100% ; Pain 4/10; kb3 20:22 Body Mass Index 26.63 (77.11 kg, 170.18 cm) hb ED Course: 20:17 Patient arrived in ED. jj6 20:18 Rashi Pavon MD is Attending Physician. rn 20:24 Triage completed. hb 20:24 Arm band placed on. hb 20:49 Chest Single View XRAY In Process Unspecified. EDMS 21:12 US Abdomen Limited In Process Unspecified. EDMS 21:30 Patient has correct armband on for positive identification. Bed in low position. Call kb3 light in reach. Side rails up X 1. 21:30 No provider procedures requiring assistance completed. kb3 21:32 Joanne Victoria, RN is Primary Nurse. kb3 22:00 Inserted saline lock: 20 gauge in right antecubital area, using aseptic technique. kb3 Blood collected. 22:[address] via wheelchair. kb3 22:48 CT Abd/Pelvis - IV Contrast Only In Process Unspecified. EDMS 23:47 IV discontinued, intact, bleeding controlled, No redness/swelling at site. Pressure vc1 dressing applied. Administered Medications: 20:32 Drug: Motrin (ibuprofen) 800 mg Route: PO; hb 23:52 Follow up: Response: No adverse reaction as6 22:00 Drug: NS 0.9% 1000 ml Route: IV; Rate: 1000 ml; Site: right antecubital; kb3 23:52 Follow up: Response: No adverse reaction; IV Status: Completed infusion; IV Intake: as6 1000ml 22:52 Drug: Rocephin (cefTRIAXone) 1 grams Route: IV; Rate: calculated rate; Site: right kb3 antecubital; 23:51 Follow up: Response: No adverse reaction; IV Status: Completed infusion; IV Intake: 82dnye7 Medication: 21:30 VIS not applicable for this client. kb3 Intake: 23:51 IV: 50ml; Total: 50ml. as6 23:52 IV: 1000ml; Total: 1050ml. as6 Outcome: 23:43 Discharge ordered by . rn 23:47 Discharged to home ambulatory. vc1 23:47 Condition: good 23:47 Discharge instructions given to patient, Instructed on discharge instructions, follow up and referral plans. medication usage, Demonstrated understanding of instructions, follow-up care, medications, Prescriptions given X 1. 23:48 Patient left the ED. vc1 Signatures: Dispatcher [employer] EDMS Rashi Pavon MD MD rn Baxter, Heather RN RN Anel Personj6 Rodney Bynum RN RN as6 Annabel Ferreira RN RN vc1 Joanne Victoria RN RN kb3 Corrections: (The following items were deleted from the chart) 20:25 20:22 Chief complaint: Right flank pain, fever, and dizziness x 2-3 days. hb hb 20:27 20:22 BP 128 / 81; Pulse 116bpm; Resp 20bpm; Pulse Ox 100% RA; Temp 101.1F Temporal; hb hb
--- NOTE | 2021-11-03 23:44 | EDPHYS ---
Physician Documentation [facility] Name: Marlene Gates Age: 21 yrs Sex: Female : 2000 Arrival Date: 11/03/2021 Time: 20:17 Bed 12 Private MD: ED Physician Rashi Pavon HPI: 11/03 21:56 This 21 yrs old Female presents to ER via Wheelchair with complaints of Fever. rn 21:56 The patient reports fever, that was measured at 102 degrees Fahrenheit. Onset: The rn symptoms/episode began/occurred today. Modifying factors: there are no obvious modifying factors. Associated signs and symptoms: Pertinent positives: abdominal pain, Pertinent negatives: altered mental status, chest pain, diarrhea, hemoptysis, runny nose, sinus congestion, sinus drainage, skin rash, shortness of breath, sore throat, swelling, vomiting. Severity of symptoms: At their worst the symptoms were mild in the emergency department the symptoms are unchanged. The patient has not experienced similar symptoms in the past. The patient has not recently seen a physician. Pt reports is 2 months , began with fever today, right flank pain, no headache/neck pain/neck stiffness/chest pain/sob/cough/runny nose. No vomiting or diarrhea. No vaginal discharge. . Historical: - Allergies: 20:24 No Known Allergies; hb - PMHx: 20:24 Asthma; hb - Immunization history:: Adult Immunizations up to date, Client reports having NOT received the Covid vaccine. Last tetanus immunization: up to date. - Family history:: not pertinent. - Social history:: Smoking status: Patient denies any tobacco usage or history of. - Hospitalizations: : No recent hospitalization is reported. ROS: 21:56 Constitutional: + fever Eyes: Negative for injury, pain, redness, and discharge, ENT: rn Negative for injury, pain, and discharge, Neck: Negative for injury, pain, and swelling, Cardiovascular: Negative for chest pain, palpitations, and edema, Respiratory: Negative for shortness of breath, cough, wheezing, and pleuritic chest pain, Abdomen/GI: + right flank pain Back: Negative for injury : Negative for injury, bleeding, discharge, and swelling, MS/Extremity: Negative for injury and deformity, Skin: Negative for injury, rash, and discoloration, Neuro: Negative for headache, weakness, numbness, tingling, and seizure. Exam: 21:56 Constitutional: This is a well developed, well nourished patient who is awake, alert, rn and in no acute distress. Head/Face: Normocephalic, atraumatic. Eyes: Periorbital areas with no swelling, redness, or edema. ENT: NO stridor Neck: Supple, full range of motion without nuchal rigidity. No Meningismus. Cardiovascular: Tachycardic, regular. No pulse deficits. Respiratory: Mild tachypnea, no retractions, speaking full sentences. No increased work of breathing, no retractions or nasal flaring. Abdomen/GI: soft, + mild RUQ and right flank tenderness, no rebound Back: No spinal tenderness. No costovertebral tenderness. Full range of motion. Skin: Warm, dry MS/ Extremity: Pulses equal, no cyanosis. Neuro: Awake and alert, GCS 15 09 00:05 ECG was reviewed by the Attending Physician. rn Vital Signs: 11/03 20:22 BP 128 / 81; Pulse 116; Resp 20; Temp 101.1(TE); Pulse Ox 100% on R/A; Weight 77.11 kg; hb Height 5 ft. 7 in. (170.18 cm); Pain 0/10; 23:00 BP 113 / 72; Pulse 100; Resp 18; Temp 100; Pulse Ox 100% ; Pain 4/10; kb3 20:22 Body Mass Index 26.63 (77.11 kg, 170.18 cm) hb MDM: 20:18 Patient medically screened. rn 23:32 ED course: Pt meets sepsis criteria but not severe sepsis, has source (A) of rn pyelonephritis, SIRS (B) of temp and tachycardia, but no sign of organ dysfunction at this time. Normal lactate. Abx given. . 23:41 Differential diagnosis: viral Infection, bacterial infection, UTI. Data reviewed: vital rn signs, nurses notes, lab test result(s), radiologic studies, CT scan, ultrasound, and as a result, I will discharge patient. Counseling: I had a detailed discussion with the patient and/or guardian regarding: the historical points, exam findings, and any diagnostic results supporting the discharge/admit diagnosis, lab results, radiology results, the need for further work-up and treatment in the hospital. Response to treatment: the patient's symptoms have markedly improved after treatment, and as a result, I will. ED course: Offered admission to hospital for pyelonephritis, patient and mother state that they do not want to stay in hospital and mother has 2 babies, , and no one to take care of them at home. Given strict return precautions and understood.. 11/03 20:29 Order name: Blood Culture Adult (2) 11/03 20:29 Order name: CBC with Diff; Complete Time: : 11/03 20:29 Order name: CMP; Complete Time: : rn 11/03 20:29 Order name: Lactate; Complete Time: : 11/03 20:29 Order name: Protime (+inr); Complete Time: : 11/03 20:29 Order name: Ptt, Activated; Complete Time: : 11/03 20:29 Order name: Urine Culture 11/03 20:29 Order name: Urine Microscopic Only; Complete Time: 23: 11/03 20:29 Order name: Chest Single View XRAY; Complete Time: 22: rn 11/03 20:29 Order name: SARS-COV-2 RT PCR (Document "Date of Onset" if Symptomatic) 11/03 20:29 Order name: Flu; Complete Time: : 11/03 20:29 Order name: US Abdomen Limited; Complete Time: 22: rn 11/03 22:31 Order name: Urine Dipstick-Ancillary; Complete Time: 22:33 EDMS 11/03 22:32 Order name: Urine --Ancillary (enter results); Complete Time: 23:31 mw2 11/03 20:29 Order name: Accucheck; Complete Time: 23:46 rn 11/03 20:29 Order name: Cardiac monitoring; Complete Time: 22:58 rn 11/03 20:29 Order name: EKG - Nurse/Tech; Complete Time: 22:58 rn 11/03 20:29 Order name: IV Saline Lock - Large Bore; Complete Time: 23:46 rn 11/03 20:29 Order name: Labs collected and sent; Complete Time: 23:46 rn 11/03 20:29 Order name: O2 Per Protocol; Complete Time: 23:46 rn 11/03 20:29 Order name: O2 Sat Monitoring; Complete Time: 23:46 11/03 20:29 Order name: Urine Dipstick-Ancillary (obtain specimen); Complete Time: 22:30 rn 11/03 20:29 Order name: CT Abd/Pelvis - IV Contrast Only rn EC/01 00:05 Rate is 97 beats/min. Rhythm is regular. QRS [place] is Normal. OK interval is normal. QRS rn interval is normal. QT interval is normal. No Q waves. T waves are Normal. No ST changes noted. Clinical impression: Normal ECG. Interpreted by me. Reviewed by me. Administered Medications: 11/03 20:32 Drug: Motrin (ibuprofen) 800 mg Route: PO; hb 23:52 Follow up: Response: No adverse reaction as6 22:00 Drug: NS 0.9% 1000 ml Route: IV; Rate: 1000 ml; Site: right antecubital; 3 23:52 Follow up: Response: No adverse reaction; IV Status: Completed infusion; IV Intake: as6 1000ml 22:52 Drug: Rocephin (cefTRIAXone) 1 grams Route: IV; Rate: calculated rate; Site: right kb antecubital; 23:51 Follow up: Response: No adverse reaction; IV Status: Completed infusion; IV Intake: [id number] Disposition Summary: 11/03/21 23:43 Discharge Ordered Location: Home rn Problem: new rn Symptoms: have improved rn Condition: Stable rn Diagnosis - Pyelonephritis acute rn Followup: rn - With: Private Physician - When: As needed - Reason: Recheck today's complaints, Re-evaluation by your physician Discharge Instructions: - Discharge Summary Sheet rn - Pyelonephritis, Adult rn Forms: - Medication Reconciliation Form rn - Thank You Letter rn - Antibiotic programming internship - Prescription Opioid Use rn Prescriptions: - cefpodoxime 100 mg Oral Tablet - take 2 tablets by ORAL route every 12 hours for 10 days take with food; 40 rn tablet; Refills: 0, Product Selection Permitted Signatures: Dispatcher [employer] EDRashi Mace MD MD rn Baxter, Heather, RN RN hb Bradberry, Kelly, RN RN 3 Rodney Bynum RN as6
[2021-11-04 03:23] VITALS: O2SAT 100
[2021-11-04 03:25] VITALS: BP 113/72; TEMP 100
--- NOTE | 2021-11-04 12:53 | RAD REPORT ---
EXAM DESCRIPTION: CT - Abdomen Pelvis W Contrast - 11/04/2021 5:35 am CLINICAL HISTORY: Right flank pain, recent , fever. COMPARISON: None. TECHNIQUE: CT of the abdomen and pelvis was performed following intravenous administration of iodina suyapa contrast. Late arterial phase images through the abdomen, and portal venous phase images through the abdomen and pelvis were obtained. Oral contrast was not administered. Axial, coronal, and sagitta l soft tissue window reconstructions were created and sent to PACS. This exam was performed according to our departmental dose-optimization program, which includes autom ated exposure control, adjustment of the mA and/or kV according to patient size and/or use of iterati ve reconstruction technique. FINDINGS: Thoracic: No significant abnormality. Hepatobiliary: No concerning hepatic lesion identified. The portal veins are patent. The gallbladder is unremarkable. No biliary ductal dilatation. Pancreas: Unremarkable. Spleen: Unremarkable. Gastrointestinal: No evidence of bowel obstruction or perienteric inflammation. The appendix is noa l. Adrenals: No abnormality identified in either adrenal gland. Renal: There are faint regions of geographic hypodensity in the right renal cortex. No walled off flu id collection. Mild urothelial thickening on the right. No hydronephrosis or urolithiasis. Bladder/Reproductive: Unremarkable appearance of the urinary bladder by CT technique. Multifocal smal l uterine hypodensities and contour irregularity suggestive of fibroids. Vascular/Lymphatics: No lymphadenopathy identified by CT size criteria. Abdominal aorta is normal in caliber. Musculoskeletal: No concerning osseous lesion identified. Fluid / peritoneum: No significant free fluid. No free intraperitoneal air identified. IMPRESSION 1. Findings suggestive of right-sided pyelitis and pyelonephritis. 2. No hydronephrosis or fluid collection. Electronically signed by: Yoon Arteaga MD 11/03/2021 11:09 PM CDT Due to temporary technical issues with the PACS/Fluency reporting system, reports are being signed by the in house radiologists without review as a courtesy to insure prompt reporting. The interpreting radiologist is fully responsible for the content of the report.
--- NOTE | 2021-11-04 13:56 | EKG ---
Test Date: 2021-11-03 Test Time: 22:56:39 Career Development Facilitator: LL MEASUREMENT RESULTS: Intervals: Rate: 97 AK: 172 QRSD: 80 QT: 330 QTc: 419 [place]: P: 52 AK: 172 QRS: 44 T: 30 INTERPRETIVE STATEMENTS: Normal sinus rhythm Normal ECG No previous ECG available for comparison Electronically Signed On 11-04-21 13:55:03 CDT by Sha Lewis
== END 2021-11-03 23:48 | disposition home or self-care (01) ==
LOC: ER 20:11
DX: N10 Acute pyelonephritis (principal)
CPT/HCPCS: 87040 ×2; 87088; 85025; 87086; 36415; 81025; 85610; 83605; 85730; 80053; 87804 ×2; 74177; 71045; 76705; U0003; Q9967; J7030; 81003; 81015; 93005

== ENCOUNTER 2021-11-04 08:55 | Emergency (ER) | payer OTHER ==
--- OUTSIDE RECORDS SUMMARY | 2021-11-04 09:00 | XMS REPORT | Continuity of Care Document ---
:2000 Author Organization [facility] t Address [address] [place] [address] Care Team Providers Name Role Phone Jennifer Mendoza Primary Care Physician [phone] JESSI STEINER Attending Clinician Unavailable Jessi Davison Attending Clinician [phone] JENNIFER HORNER Attending Clinician Unavailable Visit, [facility] Nurse Attending Clinician Unavailable Jennifer Mendoza Attending Clinician Low Galindo MD Attending Clinician Shilpa Rodriguez MDh Attending Clinician ERIN SIBLEY Attending Clinician Unavailable Low Galindo MD Admitting Clinician LOW GALINDO Admitting Clinician Unavailable Payers Payer Name Policy Type Policy Number Effective Date Expiration Date Ronaldo cedeño [facility] PINEDA THOMAS [id number] 2021 00:00:00 PLUS Problems Condition Condition Condition Status Onset Resolution Last Treating Co mments Source Name Details Category Date Date Treatment Clinician Date Routine Routine Disease Active Univers 7-18 [place] [facility] Disease Active Univers (spontaneo (spontaneo 6-23 [place] 00 [facility] Single Single Disease Active Univers live live 6-23 it y of 00:00: [place] 00 [facility] Gestationa Gestationa Disease Active U nivers l l 6-23 [place] of hypertens[place]ens[place] Decreased Decreased Disease Active Uni vers platelet platelet 6-23 ity of count count 00:00: [place] [facility] 39 weeks 39 weeks Disease Active Unive rs gestation gestation 6-21 ity of of of 00:00: [place] 00 [facility] Elevated Elevated Disease Active Unive rs blood [...] ity of of of 00:00: [place] 00 [facility] Multiparit Multiparit Disease Active 2020-03 U nivers y y 1-22 ity of 00:00: [place] 00 [facility] BMI BMI Disease Active 2020-03 Univers [...] Active Univers ALLERGIE Class ity of S [facility] Social History Social Habit Start Date Stop Date Quantity Comments Source ASSERTION 2020-12-02 [facility] 00:00:00 [facility] Exposure to 2021-09-10 2021-09-20 Not sure [facility] SARS-CoV-2 00:00:00 08:11:00 [facility] (event) [place] Tobacco use and 2021-09-20 2021-09-20 Smokeless tobacco Un iversity of exposure 00:00:00 00:00:00 non-user [facility] Alcohol intake 2021-09-20 2021-09-20 Current [facility] 00:00:00 00:00:00 non-drinker of [facility] alcohol (finding) Branch Sex Assigned At 2000 2000 Universit y of 00:00:00 00:00:00 [facility] Smoking Status Start Date Stop Date Source Never smoked tobacco [facility] Medications Ordered Filled Start Stop Current Ordering Indication Dosage Frequency Signature Comments Components Source Medication Medication Date Date Medication? Clinician (SIG) Name Name Yes [id number] 1{tbl} Take 1 U nivers [id number] 6-23 tablet by ity of fum-folic 00:00: mouth [place] () 00 daily. Medical 27 mg iron- Branch 1 mg folic tablet docusate Yes [id number] 200mg Take 2 Un rick 100 mg 6-23 capsules ity of capsule 00:00: by mouth [place] 00 once daily Medical as needed Branch for Constipati on. ferrous Yes [id number] 325mg Take 1 Uni vers sulfate 325 6-23 tablet by ity of mg (65 mg 00:00: mouth 2 [place] iron) 00 (two) Medical tablet times Branch daily. ibuprofen Yes [id number] 600mg Take 1 U nivers 600 mg 6-23 tablet by ity of tablet 00:00: mouth [place] 00 every 6 Medical (six) Branch hours as needed (Pain). Take with food or milk. 2022-0 Yes [id number] 1{tbl} Take 1 U nivers [id number] 6-23 tablet by ity of fum-folic 00:00: mouth [place] () 00 daily. Medical 27 mg iron- Branch 1 mg folic tablet docusate 0 Yes [id number] 200mg Take 2 Un rick 100 mg 6-23 capsules ity of capsule 00:00: by mouth [place] 00 once daily Medical as needed Branch for Constipati on. ferrous 0 Yes [id number] 325mg Take 1 Uni vers sulfate 325 6-23 tablet by ity of mg (65 mg 00:00: mouth 2 [place] iron) 00 (two) Medical tablet times Branch daily. ibuprofen 0 Yes [id number] 600mg Take 1 U nivers 600 mg 6-23 tablet by ity of tablet 00:00: mouth [place] 00 every 6 Medical (six) Branch hours as needed (Pain). Take with food or milk. 0 Yes [id number] 1{tbl} Take 1 U nivers [id number] 6-23 tablet by ity of fum-folic 00:00: mouth [place] () 00 daily. Medical 27 mg iron- Branch 1 mg folic tablet docusate 0 Yes [id number] 200mg Take 2 Un rick 100 mg 6-23 capsules ity of capsule 00:00: by mouth [place] 00 once daily Medical as needed Branch for Constipati on. ferrous 0 Yes [id number] 325mg Take 1 Uni vers sulfate 325 6-23 tablet by ity of mg (65 mg 00:00: mouth 2 [place] iron) 00 (two) Medical tablet times Branch daily. ibuprofen 0 Yes [id number] 600mg Take 1 U nivers 600 mg 6-23 tablet by ity of tablet 00:00: mouth [place] 00 every 6 Medical (six) Branch hours as needed (Pain). Take with food or milk. 2021-0 Yes [id number] 1{tbl} Take 1 U nivers [id number] 6-23 tablet by ity of fum-folic 00:00: mouth [place] () 00 daily. Medical 27 mg iron- Branch 1 mg folic tablet docusate 0 Yes [id number] 200mg Take 2 Un rick 100 mg 6-23 capsules ity of capsule 00:00: by mouth [place] 00 once daily Medical as needed Branch for Constipati on. ferrous 2021-0 Yes [id number] 325mg Take 1 Uni vers sulfate 325 6-23 tablet by ity of mg (65 mg 00:00: mouth 2 [place] iron) 00 (two) Medical tablet times Branch daily. ibuprofen 2021-0 Yes [id number] 600mg Take 1 U nivers 600 mg [...] acetaminoph 2021-0 Yes 650mg 650 mg, Un rick en 08-25 Oral, ity of (TYLENOL) 21:22: [...] xas mg 00 :00 dose, On Medical [facility] Branch 08/25/21 at 0645, Routine proMETHazin 2021- [...] [place] mg 00 :00 dose, On Medical [facility] Branch 08/25/21 at 0215, Routine oxytocin 2021- [...] at 1622, Routine PNV 67-iron 2020-03 Yes [id number] 1{capsu Take 1 Univers ps-folate 1-22 le} capsule by ity of no.1-dha 00:00: mouth [place] (VITAFOL 00 daily. Medical ULTRA) 29 Branch mg iron- 1 mg-200 mg Cap PNV 67-iron 2020-03 Yes [id number] 1{capsu Take 1 Univers ps-folate -22 le} capsule by ity of no.1-dha 00:00: mouth [place] (VITAFOL 00 daily. Medical ULTRA) 29 Branch mg iron- 1 mg-200 mg Cap PNV 67-iron 2020-03- No [id number] 1{capsu Take 1 Univers ps-folate 1-22 -23 le} capsule by ity of no.1-dha 00:00: 00:00 mouth [place] (VITAFOL 00 :00 daily. Medical ULTRA) 29 Branch mg iron- 1 mg-200 mg Cap PNV 67-iron 2020-03- No [id number] 1{capsu Take 1 Univers ps-folate -22 - le} capsule by ity of no.1-dha 00:00: 00:00 mouth [place] (VITAFOL 00 :00 daily. Medical ULTRA) 29 Branch mg iron- 1 mg-200 mg Cap Immunizations Ordered Filled Immunization Date Status Comments [facility] e Immunization Name Name HPV9 2021 Completed University of 00:00: [facility] HPV9 2021 Completed University of 00:00: [facility] HPV9 2021 Completed University of 00:00:00 [facility] TDAP 2021-06-02 Completed University of 00:00: [facility] TDAP 2021-06-02 Completed University of 00:00: [facility] TDAP 2021-06-02 Completed University of 00:00: [facility] TDAP 2021-06-02 Completed University of 00:00:00 [facility] TDAP 2021-06-02 Completed University of 00:00: [facility] TDAP 2021-06-02 Completed University of 00:00:00 [place] [...] Branch Body temperature 2021 16:26:00 36.89 Meka [facility] Respiratory rate 2021 16:26:00 18 /min [facility] Oxygen saturation in 2021 16:26:00 98 /min [facility] Arterial blood by [facility] Pulse oximetry Branch Systolic blood 2021-08-24 18:13:00 135 mm[Hg] [facility] Diastolic blood 2021-08-24 18:13:00 76 mm[Hg] [facility] Heart rate 2021-08-24 18:13:00 85 /min [facility] Body temperature 2021-08-24 18:07:00 36.56 Meka [facility] Body weight 2021-08-24 18:07:00 89.472 kg [facility] Procedures Procedure Date / Time Performing Clinician Source Performed POCT URINALYSIS W/O 2021-09-03 15:30:00 Shelia Teixeira [facility] SPECIFIC GRAVITY [facility] EXTRA TUBE LAV 2021 10:58:00 Low Galindo [facility] CBC WITH DIFF 2021 09:56:00 [facility] VENOUS CORD GAS 2021-08-25 17:01:00 Vikas Cabral [facility] [place] [facility] SGOT (ASPARTATE AMINO 2021-08-25 05:18:00 Ramirez [place] [facility] TRANSFER) Medical Branch CREATININE 2021-08-25 05:18:00 Ramirez [facility] ALANINE AMINO 2021-08-25 05:18:00 Ramirez [facility] TRANSFERASE(SGPT [facility] LACTATE DEHYDROGENASE 2021-08-25 05:18:00 Ramirez, [facility] URIC ACID 2021-08-25 05:18:00 Ramirez [facility] URINALYSIS 2021-08-25 05:18:00 Ramirez, [facility] PROTEIN CREAT RATIO URINE 2021-08-25 05:18:00 Linette Guzmán [facility] RANDOM [facility] CBC WITH DIFF 2021-08-25 03:37:00 JenusaitisVikas [facility] [place] [facility] HEPATITIS B SURFACE 2021-08-25 03:37:00 JenusaitisVikas [facility] ANTIGEN [facility] HIV 1/2 AG-AB WITH REFLEX 2021-08-25 03:37:00 JenusaitisVikas [facility] GALV ONLY - SYPHILIS 2021-08-25 03:37:00 Jenusaitis cyndy [facility] IGG/IGM [facility] HB ABO GROUPING 2021-08-25 03:26:00 Jenusaitis [facility] RHO (D) IMMUNE GLOBULIN 2021-08-25 03:26:00 Bo [facility] COVID-19 (ID NOW RAPID 2021-08-25 02:29:00 Mateo [facility] TESTING) Medical Branch LAB ONLY COVID 2021-08-25 02:29:00 Mateo [facility] INTERPRETATION [facility] Encounters Start End Encounter Admission Attending Care Care Encounter Source Date/Time Date/Time Type Type Clinicians Facility Department ID 2021-10-11 2021-10-11 Outpatient R AKINGANESHPE, [facility] [id number] Univers 08:15:00 08:15:00 JESSI [id number] sumanth o [facility] [place] [facility] 2021-10-11 2021-10-11 Outpatient R AKINSIPE, [facility] [id number] Univers 08:15:00 08:15:00 JESSI ity o [facility] [place] [facility] 2021-09-20 2021-09-20 Outpatient R AKINSIPE, [facility] [id number] Univers 08:00:00 08:28:52 JESSI ity o [facility] [place] [facility] 2021-09-20 2021-09-20 Routine Akinsipe, [facility] [id number] Univers 08:00:00 08:28:52 Jessi Douglass INDUSTRIAL MAINTENANCE TECHNICIAN [id number] ity of Visit REGIONAL 4.2.7.2.686 Neri as MATERNAL [id number] Med ical & CHILD [address] [place] [address] 2021-09-20 2021-09-20 Outpatient R AKINTELLO, [facility] [id number] Univers 08:00:00 08:00:00 JESSI [id number] ity o f [facility] 2021-09-03 2021-09-03 Outpatient R HORNER [facility] [id number] Univers 10:00:00 10:39:25 JENNIFER ity o f [facility] 2021-09-03 2021-09-03 Nurse Visit, Khurram-Rmchp Nurse [facility] [id number] Univers 10:00:00 10:39:25 Visit Jennifer Horner INDUSTRIAL MAINTENANCE TECHNICIAN [id number] ity of [facility] 4.2.7.2.686 Neri as MATERNAL [id number] [facility] ical & CHILD [address] [place] [address] 2021-08-24 2021 [facility] ALEXANDRA Galindo [id number] Univers 21:03:00 14:56:00 Encounter Low Lon SURI [id number] ity of [facility] 4.2.7.2.686 Neri as [id number] [facility] [address] [place] 2021-08-25 2021-08-25 Anesthesia [facility] ALEXANDRA [id number] Univers 20:02:15 20:02:15 Event SURI [id number] it y of [facility] 4.2.7.2.686 Neri as [id number] [facility] [address] [place] 2021-08-24 2021-08-24 Anesthesia [facility] ALEXANDRA [id number] Univers 21:22:37 21:22:37 Event SURI [id number] it y of [facility] 4.2.7.2.686 Neri as [id number] [address] 2021-08-24 2021-08-24 Routine Akinsipe, [facility] [id number] Univers 13:00:00 13:20:08 Jessi Douglass INDUSTRIAL MAINTENANCE TECHNICIAN [id number] ity of Visit [facility] [id number] Neri as MATERNAL [id number] Med ical & CHILD [address] [place] [address] 2021-08-24 2021-08-24 Outpatient R OBDULIA [facility] [id number] Univers 13:00:00 13:20:08 JESSI ity o f [facility] 2021-02-11 2021-02-11 Outpatient P MARYJO [facility] [id number] [facility] 08:00:00 08:44:[address] [facility] Results Test Description Test Time Test Comments [...] code = 3257) . Negative - Negative [facility] with [id number] 11:06:47 Test Item Value Reference Range Interpretation Comments WBC (test code = See_Comment [Automated 4298-2) message] The sy stem which generated this result transmitted reference range : 4.30 - 11.10 10*3/?L. The reference range was not used to interpret this result as normal/abnormal . RBC (test code = See_Comment L [Automated 670-8) message] The sy stem which generated this [...] RDW-SD (test code = 44.9 fL 39.0-49.9 46369-1) RDW-CV (test code = 13.8 % 12.0-15.5 788-0) PLT (test code = See_Comment L [Automated 777-3) message] The sy stem which generated this result transmitted reference range : 166 - 358 10*3/ ?L. The reference r christie was not used to interpret this result as normal/abnormal . MPV (test code = 12.6 fL 9.5-12.9 27279-0) NRBC/100 WBC (test See_Comment [Automat ed code = 8516750090) message] The system which generated this result transmitted reference range : 0.0 - 10.0 /100 WBCs. The refer ence range was not u sed to interpret th is result as normal/abnormal . NRBC x10^3 (test code <0.01 See_Comment [Auto mated = 3863026083) message] The s ystem which generated this result transmitted reference range : 10*3/?L. The reference range was not used to interpret this result as normal/abnormal . GRAN MAT (NEUT) % 69.8 % (test code = 770-8) IMM GRAN % (test code 0.80 % = 0952156374) LYMPH % (test code = 21.0 % 736-9) MONO % (test code = 7.7 % 5905-5) EOS % (test code = 0.4 % 713-8) BASO % (test code = 0.3 % 706-2) GRAN MAT x10^3(ANC) 6.82 10*3/uL 1.88-7.09 (test code = 6210583146) IMM GRAN x10^3 (test 0.08 10*3/uL 0.00-0.06 H code = 1218302402) LYMPH x10^3 (test code 2.05 10*3/uL 1.32-3.29 = 731-0) MONO x10^3 (test code 0.75 10*3/uL 0.33-0.92 = 742-7) EOS x10^3 (test code = 0.04 10*3/uL 0.03-0.39 711-2) BASO x10^3 (test code 0.03 10*3/uL 0.01-0.07 = 704-7) Lab Interpretation Abnormal (test code = 07815-9) [facility] IMMUNE [id number] 23:35:13 Test Item Value Reference Range Interpretation Comments RHIG CANDIDATE? No- see comment Patient i s not a (test code = candidate for R hIg- 5055) Patient is Rh Positive.Perfor med at [facility] Laboratory Services - [facility] Blood [address] [place] [address]Tyxo Free: [phone] A No. [id number] [facility] [place] [facility] HospitalARTERIAL CORD [id number] 17:13:01 Test Item Value Reference Range Interpretation Comments BASE EXCESS, CORD mEq/L (test code = 7457838324) AC PH, CORD (BEAKER) 7.18-7.38 (test code = 5193286657) PC02, CORD (test code See_Comment [Auto mated message] The = 0652968681) system which g enerated this result transmit suyapa reference range : 32 - 66 mmHg. The refer ence range was not used to interpret this result as normal/abnormal . PO2, CORD (test code See_Comment [Autom ated message] The = 0183980318) system which g enerated this result transmit suyapa reference range : 10 - 30 mmHg. The refer ence range was not used to interpret this result as normal/abnormal . BICARBONATE, CORD See_Comment [Automate d message] The (test code = system which ge nerated this 7599063946) result transmit suyapa reference range : 17 - 27 mEq/L. The refe rence range was not used to interpret this result as normal/abnormal . [facility] [place] [facility] Hospital[facility]OUS CORD [id number] 17:11:40 Test Item Value Reference Range Interpretation Comments VENOUS BASE EXCESS, mEq/L CORD (test code = 5095440325) VENOUS PH, CORD (test 7.25-7.45 code = 0495633924) VENOUS PC02, CORD See_Comment [Automate d message] The (test code = system which ge nerated 1769775766) this result tra nsmitted reference range : 27 - 49 mmHg. The refer ence range was not used to interpret this result as normal/abnormal . VENOUS PO2, CORD (test See_Comment [Aut omated message] The code = 9096274496) system [facility] generated this result tra nsmitted reference range : 17 - 41 mmHg. The refer ence range was not used to interpret this result as normal/abnormal . VENOUS BICARBONATE, See_Comment [Automa suyapa message] The CORD (test code = system whi ch generated 9424370101) this result tra nsmitted reference range : 12 - 29 mEq/L. The refe rence range was not used to interpret this result as normal/abnormal . [facility] ONLY - SYPHILIS [id number] 16:20:41 Test Item Value Reference Range Interpretation Comments Syphilis IgG/IgM (test Non-reactive Non-reactive code = 55827-3) LEWIS (test code = LEWIS) Non-reactive - No serologic evidence of T. pallidum infection. Cannot exclude incubating or early syphilis. Submit a second specimen in 2-4 weeks if syphilis is clinically suspected. Equivocal - Further testing to follow. Reactive - Further testing to follow. Lab Interpretation (test Normal code = 05952-9) [facility] HospitalHepatitis B Surface [id number] 09:33:43 Test Item Value Reference Range Interpretation Comments HBsAg Semi-Quantitative (test code = Negative Negative 5195-3) [facility] 1/2 AG-AB WITH [id number] 07:29:32 Test Item Value Reference Range Interpretation Comments HIV Negative Negative Semi-quantitative (test code = 95550-5) LEWIS (test code = Non-reactive for HIV-1 LEWIS) antigen and HIV-1/HIV-2 antibodies. ?No laboratory evidence of HIV infection. ?Repeat in 2-4 weeks if acute HIV infection is suspected. [facility] [place] [facility] HospitalUric Acid [id number] 06:34:29 Test Item Value Reference Range Interpretation Comments URIC ACID (test code = 4597494683) 4.8 mg/dL 2.9-6.0 Lab Interpretation (test code = Normal 62846-0) [facility] [place] [facility] HospitalSer [id number] 06:34:29 Test Item Value Reference Range Interpretation Comments CREATININE (test code 0.58 mg/dL 0.50-1.04 = 1587342203) eGFR (test code = mL/min/1.73m2 7812865467) LEWIS (test code = LEWIS) Association of [...] or urine or abnormalities in imaging tests). [facility] HospitalSGOT (Asparate Amino Transfer)2021-08-25 06:34:29 Test Item Value Reference Range Interpretation Comments AST(SGOT) (test code = 0230689944) 18 U/L 13-40 Lab Interpretation (test code = Normal 78252-7) [facility] [place] [facility] HospitalAlanine Amino Transferase (SGPT)2021-08-25 06:34:29 Test Item Value Reference Range Interpretation Comments ALTv (test code = 1742-6) 10 U/L 5-35 Lab Interpretation (test code = Normal 55391-8) [facility] [place] [facility] HospitalLactate [id number] 06:21:29 Test Item Value Reference Range Interpretation Comments LDH (test code = 4929728213) 436 U/L 300-600 Lab Interpretation (test code = Normal 26987-7) [facility] [place] [facility] HospitalType and Screen - ONCE [id number] 04:09:47 Test Item Value Reference Range Interpretation Comments ABO & RH (test code O POSITIVE Performe d at [facility] = 20) Laboratory Serv [facility] Blood Bank3 [address] [facility] [address]Hhlv Free: [phone] A No. [id number] IAT (test code = Negative Performed a t [facility] 1185) Laboratory Serv [facility] Blood Bank3 [address] [facility] [address]Augz Free: [phone] A No. [id number] [facility] HospitalCBC with [id number] 03:58:29 Test Item Value Reference Range Interpretation Comments WBC (test code = See_Comment [Automated 6690-2) message] The sy stem which generated this result transmitted reference range : 4.30 - 11.10 10*3/?L. The reference range was not used to interpret this result as normal/abnormal . RBC (test code = See_Comment [Automated 739-8) message] The sy stem which generated this [...] RDW-SD (test code = 43.8 fL 39.0-49.9 95087-3) RDW-CV (test code = 13.3 % 12.0-15.5 788-0) PLT (test code = See_Comment L [Automated 777-3) message] The sy stem which generated this result transmitted reference range : 166 - 358 10*3/ ?L. The reference r christie was not used to interpret this result as normal/abnormal . MPV (test code = 12.6 fL 9.5-12.9 67471-6) NRBC/100 WBC (test See_Comment [Automat ed code = 5326937660) message] The system which generated this result transmitted reference range : 0.0 - 10.0 /100 WBCs. The refer ence range was not u sed to interpret th is result as normal/abnormal . NRBC x10^3 (test code <0.01 See_Comment [Auto mated = 3770346624) message] The s ystem which generated this result transmitted reference range : 10*3/?L. The reference range was not used to interpret this result as normal/abnormal . GRAN MAT (NEUT) % 59.4 % (test code = 770-8) IMM GRAN % (test code 0.90 % = 7591829366) LYMPH % (test code = 30.2 % 736-9) MONO % (test code = 8.6 % 5905-5) EOS % (test code = 0.5 % 713-8) BASO % (test code = 0.4 % 706-2) GRAN MAT x10^3(ANC) 4.63 10*3/uL 1.88-7.09 (test code = 9728904300) IMM GRAN x10^3 (test 0.07 10*3/uL 0.00-0.06 H code = 2379393585) LYMPH x10^3 (test code 2.35 10*3/uL 1.32-3.29 = 731-0) MONO x10^3 (test code 0.67 10*3/uL 0.33-0.92 = 742-7) EOS x10^3 (test code = 0.04 10*3/uL 0.03-0.39 711-2) BASO x10^3 (test code 0.03 10*3/uL 0.01-0.07 = 704-7) Lab Interpretation Abnormal (test code = 21523-7) [facility]"
[2021-11-04] MEDS ORDERED: IBUPROFEN 400 MG TAB ONE (09:45)
[2021-11-04] MEDS ORDERED: NA CHLORIDE 0.9% 1,000 ML ONE ×2 (09:45→11:03)
[2021-11-04] MEDS ORDERED: ONDANSETRON 4 MG/2 ML VIAL ONE (09:45)
--- NOTE | 2021-11-04 10:35 | ER ---
Nurse's Notes [facility] Name: Marlene Gates Age: 21 yrs Sex: Female : 2000 Arrival Date: 11/04/2021 Time: 08:58 Bed 13 Private MD: Diagnosis: Nausea;UTI/ Urinary tract infection, site not specified Presentation: 11/04 09:09 Chief complaint: Patient states: N/V continues since her visit last night. Fever 102.6 ll1 at home. No pain now. Was diagnosed with a kidney infection. Coronavirus screen: Vaccine status: Patient reports being unvaccinated. Client denies travel out of the [place] in the last 14 days. fatigue, fever, headache, muscle pain, nausea, vomiting. Client presents with at least one sign or symptom that may indicate coronavirus-19. Standard/surgical mask placed on the client. Ebola Screen: Patient denies travel to an Ebola-affected area in the 21 days before illness onset. Initial Sepsis Screen: Does the patient meet any 2 criteria? HR > 90 bpm. No. Patient's initial sepsis screen is negative. Does the patient have a suspected source of infection? Yes: Other: diagnosed with a kidney infection yesterday. Risk Assessment: Do you want to hurt yourself or someone else? Patient reports no desire to harm self or others. Onset of symptoms was November 03, 2021. 09:09 Method Of Arrival: Ambulatory ll1 09:09 Acuity: KARLOS 3 ll1 Triage Assessment: 09:13 General: Appears ill, Behavior is calm, cooperative, appropriate for age. Pain: Denies ll1 pain. GI: Abdomen is flat, Reports nausea, vomiting. 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 states not now ll1 Historical: - Allergies: 09:05 No Known Allergies; ll1 - PMHx: 09:05 Asthma; ll1 - PSHx: 09:09 None; ll1 - Immunization history:: Client reports having NOT received the Covid vaccine. - Social history:: Smoking status: Patient denies any tobacco usage or history of. Screenin:13 Abuse screen: Denies threats or abuse. Nutritional screening: No deficits noted. ll1 Tuberculosis screening: No symptoms or risk factors identified. 09:43 Fall Risk IV access (20 points). Total Dillard Fall Scale indicates No Risk (0-24 pts). ll1 Assessment: 10:04 Reassessment: No changes from previously documented assessment. Patient and/or family ll1 updated on plan of care and expected duration. Pain level reassessed. Patient is alert, oriented x 3, equal unlabored respirations, skin warm/dry/pink. 10:45 Reassessment: No changes from previously documented assessment. Patient and/or family ll1 updated on plan of care and expected duration. Pain level reassessed. Patient is alert, oriented x 3, equal unlabored respirations, skin warm/dry/pink. 10:57 Reassessment: No changes from previously documented assessment. Patient and/or family ll1 updated on plan of care and expected duration. Pain level reassessed. 11:32 Reassessment: No changes from previously documented assessment. Patient and/or family ll1 updated on plan of care and expected duration. Pain level reassessed. Patient is alert, oriented x 3, equal unlabored respirations, skin warm/dry/pink. GI: Patient currently denies vomiting. 11:39 Reassessment: No changes from previously documented assessment. Patient and/or family ll1 updated on plan of care and expected duration. Pain level reassessed. Vital Signs: 09:09 BP 106 / 81; Pulse 113; Resp 17; Temp 99.5(TE); Pulse Ox 96% on R/A; Weight 78.93 kg; ll1 Height 5 ft. 7 in. (170.18 cm); Pain 0/10; 09:22 Pulse 106; ll1 09:43 BP 105 / 70; Pulse 95; Pulse Ox 96% ; ll1 10:04 BP 101 / 55; Pulse 93; Resp 16; Pulse Ox 96% on R/A; ll1 10:50 BP 86 / 51; Pulse 97; ll1 10:53 BP 88 / 49 Sitting; Pulse 97; ll1 11:33 BP 98 / 59; Pulse 80; Resp 15; Pulse Ox 96% on R/A; ll1 09:09 Body Mass Index 27.25 (78.93 kg, 170.18 cm) 1 10:53 Rylan [place] NP notified of low BP. Another bolus to be given before discharge. 1 11:33 cleared for discharge by FOUNTAIN ROLLER ASSEMBLER 1 ED Course: 08:58 Patient arrived in ED. mr 08:58 [place] is PHCP. jl9 08:58 Robert Eduardo DO is Attending Physician. jl9 09:05 Linda Gilbert, RN is Primary Nurse. ll1 09:05 Arm band placed on Patient placed in an exam room, on a stretcher. ll1 09:13 Triage completed. ll1 09:13 Patient has correct armband on for positive identification. Bed in low position. Call ll1 light in reach. Side rails up X 1. Client placed on continuous cardiac and pulse oximetry monitoring. NIBP monitoring applied. 11:34 No provider procedures requiring assistance completed. Patient did not have IV access ll1 during this emergency room visit. Administered Medications: 09:43 Drug: NS 0.9% 1000 ml Route: IV; Rate: 1000 ml; Site: right antecubital; ll1 10:46 Follow up: Response: No adverse reaction; IV Status: Completed infusion; IV Intake: ll1 1000ml 09:43 Drug: Ondansetron 4 mg Route: IVP; Site: right antecubital; ll1 10:46 Follow up: Response: No adverse reaction ll1 10:03 Drug: Ibuprofen 800 mg Route: PO; ll1 10:46 Follow up: Response: No adverse reaction ll1 10:56 Drug: NS 0.9% 1000 ml Route: IV; Rate: 1000 ml; Site: right antecubital; ll1 11:34 Follow up: Response: No adverse reaction; IV Status: Completed infusion; IV Intake: ll1 1000ml Medication: 09:13 VIS not applicable for this client. ll1 Intake: 10:46 IV: 1000ml; Total: 1000ml. ll1 11:34 IV: 1000ml; Total: 2000ml. ll1 Outcome: 10:34 Discharge ordered by . jl9 11:34 Condition: stable ll1 11:39 Discharged to home ambulatory. ll1 11:39 Discharge instructions given to patient, family, Instructed on discharge instructions, follow up and referral plans. medication usage, Demonstrated understanding of instructions, follow-up care, medications, Prescriptions given X 1. 11:39 Patient left the ED. ll1 Signatures: Hooker Ade mr Linda Gilbert, RN RN ll1 [place] jl9 Corrections: (The following items were deleted from the chart) 11:34 11:33 BP 98 / 59; Pulse 80bpm; Resp 15bpm; Pulse Ox 96% RA; ll1 ll1
--- NOTE | 2021-11-04 10:35 | EDPHYS ---
Physician Documentation [facility] Name: Marlene Gates Age: 21 yrs Sex: Female : 2000 Arrival Date: 11/04/2021 Time: 08:58 Bed 13 Private MD: ED Physician Robert Eduardo HPI: 11/04 09:28 This 21 yrs old Female presents to ER via Ambulatory with complaints of jl9 nausea and vomiting. Patient seen in ED last night and diagnosed with a UTI but was not given any nausea medicine. . 09:28 The patient reports fever, that was measured at 102 degrees Fahrenheit. Onset: The jl9 symptoms/episode began/occurred yesterday. Modifying factors: Recent medications: Rocephin. Associated signs and symptoms: Pertinent positives: nausea, vomiting. MATERIALS BUYER: 09:13 vaginal delivery 2 months ago. states not now ll1 Historical: - Allergies: 09:05 No Known Allergies; ll1 - PMHx: 09:05 Asthma; ll1 - PSHx: 09:09 None; ll1 - Immunization history:: Client reports having NOT received the Covid vaccine. - Social history:: Smoking status: Patient denies any tobacco usage or history of. ROS: 09:31 Eyes: Negative for injury, pain, redness, and discharge, ENT: Negative for injury, jl9 pain, and discharge, Neck: Negative for injury, pain, and swelling, Cardiovascular: Negative for chest pain, palpitations, and edema, Respiratory: Negative for shortness of breath, cough, wheezing, and pleuritic chest pain. 09:31 Back: Negative for injury and pain. 09:31 MS/Extremity: Negative for injury and deformity, Skin: Negative for injury, rash, and discoloration, Neuro: Negative for headache, weakness, numbness, tingling, and seizure, Psych: Negative for depression, anxiety, suicide ideation, homicidal ideation, and hallucinations, Allergy/Immunology: Negative for hives, rash, and allergies, Endocrine: Negative for neck swelling, polydipsia, polyuria, polyphagia, and marked weight changes. 09:31 Constitutional: Positive for fever, malaise. 09:31 Abdomen/GI: Positive for nausea, vomiting. 09:31 : Positive for urinary symptoms, flank pain. Exam: 09:32 Constitutional: This is a well developed, well nourished patient who is awake, alert, jl9 and in no acute distress. Head/Face: Normocephalic, atraumatic. Eyes: Pupils equal round and reactive to light, extra-ocular motions intact. Lids and lashes normal. Conjunctiva and sclera are non-icteric and not injected. Cornea within normal limits. Periorbital areas with no swelling, redness, or edema. ENT: Mucous membranes moist. Neck: Trachea midline, no thyromegaly or masses palpated, and no cervical lymphadenopathy. Supple, full range of motion without nuchal rigidity, or vertebral point tenderness. No Meningismus. Chest/axilla: Normal chest wall appearance and motion. Nontender with no deformity. No lesions are appreciated. Cardiovascular: Regular rate and rhythm with a normal S1 and S2. No gallops, murmurs, or rubs. Normal PMI, no JVD. No pulse deficits. Respiratory: Lungs have equal breath sounds bilaterally, clear to auscultation and percussion. No rales, rhonchi or wheezes noted. No increased work of breathing, no retractions or nasal flaring. 09:32 Back: No spinal tenderness. No costovertebral tenderness. Full range of motion. Skin: Warm, dry with normal turgor. Normal color with no rashes, no lesions, and no evidence of cellulitis. MS/ Extremity: Pulses equal, no cyanosis. Neurovascular intact. Full, normal range of motion. Neuro: Awake and alert, GCS 15, oriented to person, place, time, and situation. Cranial nerves II-XII grossly intact. Motor strength 5/5 in all extremities. Sensory grossly intact. Cerebellar exam normal. Normal gait. Psych: Awake, alert, with orientation to person, place and time. Behavior, mood, and affect are within normal limits. 09:32 Abdomen/GI: Inspection: abdomen appears normal, Bowel sounds: normal, Palpation: abdomen is soft and non-tender. Vital Signs: 09:09 BP 106 / 81; Pulse 113; Resp 17; Temp 99.5(TE); Pulse Ox 96% on R/A; Weight 78.93 kg; ll1 Height 5 ft. 7 in. (170.18 cm); Pain 0/10; 09:22 Pulse 106; ll1 09:43 BP 105 / 70; Pulse 95; Pulse Ox 96% ; ll1 10:04 BP 101 / 55; Pulse 93; Resp 16; Pulse Ox 96% on R/A; ll1 10:50 BP 86 / 51; Pulse 97; ll1 10:53 BP 88 / 49 Sitting; Pulse 97; ll1 11:33 BP 98 / 59; Pulse 80; Resp 15; Pulse Ox 96% on R/A; ll1 09:09 Body Mass Index 27.25 (78.93 kg, 170.18 cm) 1 10:53 Rylan [place] NP notified of low BP. Another bolus to be given before discharge. 1 11:33 cleared for discharge by MEASUREMENT SPECIALIST 1 MDM: 08:58 Patient medically screened. 9 09:33 Data reviewed: vital signs, nurses notes. 9 10:33 Counseling: I had a detailed discussion with the patient and/or guardian regarding: the 9 historical points, exam findings, and any diagnostic results supporting the discharge/admit diagnosis, the need for outpatient follow up, to return to the emergency department if symptoms worsen or persist or if there are any questions or concerns that arise at home, Patient and mother agree to go to the pharmacy to pickup her abx prescribed yesterday. . Response to treatment: the patient's symptoms have resolved after treatment. Administered Medications: 09:43 Drug: NS 0.9% 1000 ml Route: IV; Rate: 1000 ml; Site: right antecubital; ll1 10:46 Follow up: Response: No adverse reaction; IV Status: Completed infusion; IV Intake: ll1 1000ml 09:43 Drug: Ondansetron 4 mg Route: IVP; Site: right antecubital; ll1 10:46 Follow up: Response: No adverse reaction ll1 10:03 Drug: Ibuprofen 800 mg Route: PO; ll1 10:46 Follow up: Response: No adverse reaction ll1 10:56 Drug: NS 0.9% 1000 ml Route: IV; Rate: 1000 ml; Site: right antecubital; ll1 11:34 Follow up: Response: No adverse reaction; IV Status: Completed infusion; IV Intake: ll1 1000ml Disposition: 18:46 Co-signature as Attending Physician, Robert Eduardo DO Spoke with patient's mother, Penny Durham, and she was with patient. Discussed vital signs with patient's mother and recommended patient return to the Emergency Department for further work up. She states she will bring the patient back to the Emergency Department.. Disposition Summary: 11/04/21 10:34 Discharge Ordered Location: Home jl9 Condition: Stable jl9 Diagnosis - Nausea jl9 - UTI/ Urinary tract infection, site not specified jl9 Followup: jl9 - With: Private Physician - When: 1 - 2 days - Reason: Recheck today's complaints, Continuance of care, Re-evaluation by your physician Discharge Instructions: - Discharge Summary Sheet jl9 - Nausea and Vomiting, Adult jl9 - Urinary Tract Infection, Adult, [id number] jl9 Forms: - Medication Reconciliation Form jl9 - Family Work Release ll1 - Thank You Letter jl9 - Antibiotic Education jl9 - Prescription Opioid Use jl9 Prescriptions: - ondansetron 4 mg Oral tablet,disintegrating - take 1 tablet by ORAL route 4 times per day As needed; 20 tablet; Refills: 0, jl9 Product Selection Permitted Signatures: Linda Gilbert RN RN ll1 Robert Eduardo DO DO ms3 [place] jl9 Corrections: (The following items were deleted from the chart) 18:50 18:16 Co-signature as Attending Physician, Robert Eduardo DO I was immediately available ms3 on-site in the emergency department for consultation in the care of the patient.. ms3
[2021-11-04 12:22] VITALS: TEMP 97.9
[2021-11-04 12:24] VITALS: BP 136/82; O2SAT 99
== END 2021-11-04 11:39 | disposition home or self-care (01) ==
LOC: ER 08:55
DX: N39.0 Urinary tract infection, site not specified (principal)
CPT/HCPCS: 96361; 96374; 99283; J7030 ×2; J2405

== ENCOUNTER 2021-11-04 20:01 | Inpatient (IN) | payer OTHER ==
--- OUTSIDE RECORDS SUMMARY | 2021-11-04 20:05 | XMS REPORT | Continuity of Care Document ---
:2000 Author Organization [facility] t Address [address] [place] [address] Care Team Providers Name Role Phone Jennifer Mendoza Primary Care Physician [phone] JESSI STEINER Attending Clinician Unavailable Jessi Davison Attending Clinician [phone] JENNIFER HORNER Attending Clinician Unavailable Visit, [facility] Nurse Attending Clinician Unavailable Jennifer Mendoza Attending Clinician Low Galindo MD Attending Clinician Shilpa Rodriguez MDh Attending Clinician ERIN SIBLEY Attending Clinician Unavailable Low Galindo MD Admitting Clinician LOW GALINDO Admitting Clinician Unavailable Payers Payer Name Policy Type Policy Number Effective Date Expiration Date Ronaldo cedeño [facility] PINEDA THOMAS [id number] 2021 00:00:00 PLUS Problems Condition Condition Condition Status Onset Resolution Last Treating Co mments Source Name Details Category Date Date Treatment Clinician Date Routine Routine Disease Active Univers 7-18 [place] [facility] Disease Active Univers (spontaneo (spontaneo 6-23 [place] 00 [facility] Single Single Disease Active Univers live live 6-23 it y of 00:00: [place] 00 [facility] Gestationa Gestationa Disease Active U nivers l l 6-23 [place] of hypertensi hypertens[place] Decreased Decreased Disease Active Uni vers platelet platelet 6-23 ity of count count 00:00: [place] [facility] Branch 39 weeks 39 weeks Disease Active Unive rs gestation gestation 6-21 ity of of of 00:00: [place] 00 [facility] Elevated Elevated Disease Active Unive rs blood [...] nausea 1-22 ity of of of 00:00: [place] 00 [facility] Multiparit Multiparit Disease Active 2020-03 U nivers y y 1-22 ity of 00:00: [place] 00 [facility] BMI BMI Disease Active 2020-03 Univers 28.0-28.9, 28.0-28.9, 1-22 it y of adult adult 00:00: [place] [facility] Supervisio Supervisio Disease Active 2019-0 U nivers n of high n of high 2-04 ity of risk risk 00:00: [place] 00 Medi sue in second in second Bran ch trimester trimester Allergies, Adverse Reactions, Alerts Allergy Allergy Status Severity Reaction(s) Onset Inactive Treating Comm ents Source Name Type Date Date Clinician NO KNOWN Drug Active Univers ALLERGIE Class ity of S [facility] Social History Social Habit Start Date Stop Date Quantity Comments Source ASSERTION 2020-12-02 [facility] 00:00:00 [facility] Exposure to 2021-09-10 2021-09-[address] [facility] SARS-CoV-2 00:00:00 08:11:00 [facility] [facility] (event) [place] Tobacco use and 2021-09-20 2021-09-20 Smokeless tobacco Un iversity of exposure 00:00:00 00:00:[address] [facility] Alcohol intake 2021-09-20 2021-09-[address] [facility] 00:00:00 00:00:00 non-drinker of [place] [facility] alcohol (finding) Branch Sex Assigned At 2000 2000 Universit y of 00:00:00 00:00:00 [facility] Smoking Status Start Date Stop Date Source Never smoked tobacco [facility] Medications Ordered Filled Start Stop Current Ordering Indication Dosage Frequency Signature Comments Components Source Medication Medication Date Date Medication? Clinician (SIG) Name Name Yes [id number] 1{tbl} Take 1 U nivers [id number] 6-23 tablet by ity of fum-folic 00:00: mouth [place] () 00 daily. Medical 27 mg iron- Branch 1 mg folic tablet docusate Yes [id number] 200mg Take 2 Un rick 100 mg 6-23 capsules ity of capsule 00:00: by mouth [place] 00 once daily Medical as needed Branch for Constipati on. ferrous Yes [id number] 325mg Take 1 Uni vers sulfate 325 6-23 tablet by ity of mg (65 mg 00:00: mouth 2 [place] iron) 00 (two) Medical tablet times Branch daily. ibuprofen Yes [id number] 600mg Take 1 U nivers 600 mg 6-23 tablet by ity of tablet 00:00: mouth [place] 00 every 6 Medical (six) Branch hours as needed (Pain). Take with food or milk. 2022-0 Yes [id number] 1{tbl} Take 1 U nivers [id number] 6-23 tablet by ity of fum-folic 00:00: mouth [place] () 00 daily. Medical 27 mg iron- Branch 1 mg folic tablet docusate 0 Yes [id number] 200mg Take 2 Un rick 100 mg 6-23 capsules ity of capsule 00:00: by mouth [place] 00 once daily Medical as needed Branch for Constipati on. ferrous 0 Yes [id number] 325mg Take 1 Uni vers sulfate 325 6-23 tablet by ity of mg (65 mg 00:00: mouth 2 [place] iron) 00 (two) Medical tablet times Branch daily. ibuprofen 0 Yes [id number] 600mg Take 1 U nivers 600 mg 6-23 tablet by ity of tablet 00:00: mouth [place] 00 every 6 Medical (six) Branch hours as needed (Pain). Take with food or milk. 0 Yes [id number] 1{tbl} Take 1 U nivers [id number] 6-23 tablet by ity of fum-folic 00:00: mouth [place] () 00 daily. Medical 27 mg iron- Branch 1 mg folic tablet docusate 0 Yes [id number] 200mg Take 2 Un rick 100 mg 6-23 capsules ity of capsule 00:00: by mouth [place] 00 once daily Medical as needed Branch for Constipati on. ferrous 0 Yes [id number] 325mg Take 1 Uni vers sulfate 325 6-23 tablet by ity of mg (65 mg 00:00: mouth 2 [place] iron) 00 (two) Medical tablet times Branch daily. ibuprofen 0 Yes [id number] 600mg Take 1 U nivers 600 mg 6-23 tablet by ity of tablet 00:00: mouth [place] 00 every 6 Medical (six) Branch hours as needed (Pain). Take with food or milk. 2021-0 Yes [id number] 1{tbl} Take 1 U nivers [id number] 6-23 tablet by ity of fum-folic 00:00: mouth [place] () 00 daily. Medical 27 mg iron- Branch 1 mg folic tablet docusate 0 Yes [id number] 200mg Take 2 Un rick 100 mg 6-23 capsules ity of capsule 00:00: by mouth [place] 00 once daily Medical as needed Branch for Constipati on. ferrous 2021-0 Yes [id number] 325mg Take 1 Uni vers sulfate 325 6-23 tablet by ity of mg (65 mg 00:00: mouth 2 [place] iron) 00 (two) Medical tablet times Branch daily. ibuprofen 2021-0 Yes [id number] 600mg Take 1 U nivers 600 mg 6-23 tablet by ity of tablet 00:00: mouth [place] 00 every 6 Medical (six) Branch hours [...] 08-25 Oral, ity of (TYLENOL) 21:22: Q6HPRN, [place] tablet 650 43 Starting Medic al mg [...] of 30 units in 16:57: 21:22 Infusion, [place] NS 500 mL 27 :45 SEE-INSTRU Medi [...] [place] mg 00 :00 dose, On Medical [facility] Branch 08/25/21 at 0645, Routine proMETHazin [...] [place] mg 00 :00 dose, On Medical [facility] Branch 08/25/21 at 0215, Routine oxytocin 2021- No 2mU/min at 2-40 Un rick (PITOCIN) 08-25 mL/hr, IV ity of 30 units in 04:20: 21:22 Infusion, [place] NS 500 mL 12 :45 TITRATE, Medica [...] at 1622, Routine PNV 67-iron 2020-03 Yes [id number] 1{capsu Take 1 Univers ps-folate 1-22 le} capsule by ity of no.1-dha 00:00: mouth [place] (VITAFOL 00 daily. Medical ULTRA) 29 Branch mg iron- 1 mg-200 mg Cap PNV 67-iron 2020-03 Yes [id number] 1{capsu Take 1 Univers ps-folate -22 le} capsule by ity of no.1-dha 00:00: mouth [place] (VITAFOL 00 daily. Medical ULTRA) 29 Branch mg iron- 1 mg-200 mg Cap PNV 67-iron 2020-03- No [id number] 1{capsu Take 1 Univers ps-folate 1-22 -23 le} capsule by ity of no.1-dha 00:00: 00:00 mouth [place] (VITAFOL 00 :00 daily. Medical ULTRA) 29 Branch mg iron- 1 mg-200 mg Cap PNV 67-iron 2020-03- No [id number] 1{capsu Take 1 Univers ps-folate -22 - le} capsule by ity of no.1-dha 00:00: 00:00 mouth [place] (VITAFOL 00 :00 daily. Medical ULTRA) 29 Branch mg iron- 1 mg-200 mg Cap Immunizations Ordered Filled Immunization Date Status Comments [facility] e Immunization Name Name HPV9 2021 Completed University of 00:00: [facility] HPV9 2021 Completed University of 00:00: [facility] HPV9 2021 Completed University of 00:00:00 [facility] TDAP 2021-06-02 Completed University of 00:00: [facility] TDAP 2021-06-02 Completed University of 00:00: [facility] TDAP 2021-06-02 Completed University of 00:00: [facility] TDAP 2021-06-02 Completed University of 00:00:00 [facility] TDAP 2021-06-02 Completed University of 00:00: [facility] TDAP 2021-06-02 Completed University of 00:00:00 [place] [facility] Vital Signs Vital Name Observation Time Observation Value Comments Source Systolic blood 2021-09-20 13:11:00 124 mm[Hg] Univer sity of pressure [place] [facility] Diastolic blood 2021-09-20 13:11:00 81 mm[Hg] Unive rsity of pressure [place] [facility] Heart rate 2021-09-20 13:11:00 67 /min Universi ty of [place] [facility] Body temperature 2021-09-20 13:11:00 36.39 Meka Univ ersity of [place] [facility] Respiratory rate 2021-09-20 13:11:00 18 /min Univ ersity of [place] [facility] Body height 2021-09-20 13:11:00 170.2 cm Universi ty of [place] [facility] Body weight 2021-09-20 13:11:00 80.797 kg Universi ty of [place] [facility] BMI 2021-09-20 13:11:00 27.90 kg/m2 Universi ty of [place] [facility] Systolic blood 2021-09-03 16:18:00 120 mm[Hg] manual Univer sity of pressure [place] [facility] Diastolic blood 2021-09-03 16:18:00 92 mm[Hg] manual Unive rsity of pressure [place] [facility] Heart rate 2021-09-03 15:08:00 104 /min Universi ty of [place] [facility] Body temperature 2021-09-03 15:08:00 36.72 Meka Univ ersity of [place] [facility] Respiratory rate 2021-09-03 15:08:00 18 /min Univ ersity of [place] [facility] Body height 2021-09-03 15:08:00 170.2 cm Universi ty of [place] [facility] Body weight 2021-09-03 15:08:00 81.466 kg Universi ty of [place] [facility] BMI 2021-09-03 15:08:00 28.13 kg/m2 Universi ty of [place] [facility] Systolic blood 2021 16:26:00 121 mm[Hg] Univer sity of pressure [place] [facility] Diastolic blood 2021 16:26:00 82 mm[Hg] Unive rsity of pressure [place] [facility] Heart rate 2021 16:26:00 75 /min Universi ty of [place] [facility] Body temperature 2021 16:26:00 36.89 Meka [facility] Respiratory rate 2021 16:26:00 18 /min [facility] Oxygen saturation in 2021 16:26:00 98 /min [facility] Arterial blood by [place] [facility] Pulse oximetry Branch Systolic blood 2021-08-24 18:13:00 135 mm[Hg] [facility] Diastolic blood 2021-08-24 18:13:00 76 mm[Hg] [facility] Heart rate 2021-08-24 18:13:00 85 /min [facility] Body temperature 2021-08-24 18:07:00 36.56 Meka [facility] Body weight 2021-08-24 18:07:00 89.472 kg [facility] Procedures Procedure Date / Time Performing Clinician Source Performed POCT URINALYSIS W/O 2021-09-03 15:30:00 Shelia Teixeira [facility] SPECIFIC GRAVITY [facility] EXTRA TUBE LAV 2021 10:58:00 Low Gal[facility] CBC WITH DIFF 2021 09:56[facility] VENOUS CORD GAS 2021-08-25 17:01:00 Vikas Cabral [facility] SGOT (ASPARTATE AMINO 2021-08-25 05:18:00 Ramirez Hastings [facility] TRANSFER) Medical Branch CREATININE 2021-08-25 05:18:00 Ramirez [facility] ALANINE AMINO 2021-08-25 05:18:00 Ramirez [facility] TRANSFERASE(SGPT [facility] LACTATE DEHYDROGENASE 2021-08-25 05:18:00 Ramirez, [facility] URIC ACID 2021-08-25 05:18:00 Ramirez [facility] URINALYSIS 2021-08-25 05:18:00 Ramirez, [facility] PROTEIN CREAT RATIO URINE 2021-08-25 05:18:00 Linette Guzmán [facility] RANDOM [facility] CBC WITH DIFF 2021-08-25 03:37:00 JenusaitisVikas [facility] HEPATITIS B SURFACE 2021-08-25 03:37:00 JenusaitisVikas [facility] ANTIGEN [facility] HIV 1/2 AG-AB WITH REFLEX 2021-08-25 03:37:00 JenusaitisVikas [facility] GALV ONLY - SYPHILIS 2021-08-25 03:37:00 Jenusaitis cyndy [facility] IGG/IGM [facility] HB ABO GROUPING 2021-08-25 03:26:00 Jenusaitis [facility] RHO (D) IMMUNE GLOBULIN 2021-08-25 03:26:00 Bo [facility] COVID-19 (ID NOW RAPID 2021-08-25 02:29:00 Mateo [facility] TESTING) Medical Branch LAB ONLY COVID 2021-08-25 02:29:00 Mateo [facility] INTERPRETATION [facility] Encounters Start End Encounter Admission Attending Care Care Encounter Source Date/Time Date/Time Type Type Clinicians Facility Department ID 2021-10-11 2021-10-11 Outpatient R AKINGANESHPE, [facility] [id number] Univers 08:15:00 08:15:00 JESSI [id number] sumanth o [facility] 2021-10-11 2021-10-11 Outpatient R AKINSIPE, [facility] [id number] Univers 08:15:00 08:15:00 JESSI ity o [facility] 2021-09-20 2021-09-20 Outpatient R AKINSIPE, [facility] [id number] Univers 08:00:00 08:28:52 JESSI ity o [facility] 2021-09-20 2021-09-20 Routine Akinsipe, [facility] [id number] Univers 08:00:00 08:28:52 Jessi Douglass [employer] [id number] ity of Visit REGIONAL 4.2.7.2.686 Neri as MATERNAL [phone] Med ical & CHILD [address] [place] [address] 2021-09-20 2021-09-20 Outpatient R AKINTELLO, [facility] [id number] Univers 08:00:00 08:00:00 JESSI [id number] ity o f [facility] 2021-09-03 2021-09-[address] [facility] [id number] Univers 10:00:00 10:39:25 [address]ER ity o f [facility] 2021-09-03 2021-09-03 Nurse Visit, Khurram-Rmchp Nurse [facility] [id number] [id number] Univers 10:00:00 10:39:25 Visit Jennifer Horner [employer] [id number] ity of [facility] 4.2.7.2.686 Neri as MATERNAL [id number] [facility] ical & CHILD [address] [place] [address] 2021-08-24 2021 [facility] ALEXANDRA Galindo [id number] Univers 21:03:00 14:56:00 Encounter Low Lon SURI [id number] ity of [facility] 4.2.7.2.686 Neri as [id number] [facility] [address] [place] 2021-08-25 2021-08-25 Anesthesia [facility] ALEXANDRA [id number] Univers 20:02:15 20:02:15 Event SURI 350.1.13.10 it y of [facility] 4.2.7.2.686 Neri as [id number] [facility] [address] [place] 2021-08-24 2021-08-24 Anesthesia [facility] ALEXANDRA [id number] Univers 21:22:37 21:22:37 Event SURI 350.1.13.10 it y of [facility] 4.2.7.2.686 Neri as [id number] [address] 2021-08-24 2021-08-24 Routine Akinsipe, [facility] [id number] Univers 13:00:00 13:20:08 Jessi Douglass [employer]NAGER 350.1.13.10 ity of Visit [facility] 4.2.7.2.686 Neri as MATERNAL [id number] Med ical & CHILD [address] [place] [address] 2021-08-24 2021-08-24 Outpatient R OBDULIA [facility] [place] [id number] Univers 13:00:00 13:20:08 [address]I [address] o f [facility] 2021-02-11 2021-02-[address] [facility] [id number] [facility] 08:00:00 08:44:44 ERIN ity [facility] Results Test Description Test Time Test Comments [...] code = 3257) . Negative - Negative [facility] with [id number] 11:06:47 Test Item Value Reference Range Interpretation Comments WBC (test code = See_Comment [Automated 4143-2) message] The sy stem which generated this result transmitted reference range : 4.30 - 11.10 10*3/?L. The reference range was not used to interpret this result as normal/abnormal . RBC (test code = See_Comment L [Automated 593-8) message] The sy stem which generated this [...] RDW-SD (test code = 44.9 fL 39.0-49.9 73390-7) RDW-CV (test code = 13.8 % 12.0-15.5 788-0) PLT (test code = See_Comment L [Automated 777-3) message] The sy stem which generated this result transmitted reference range : 166 - 358 10*3/ ?L. The reference r christie was not used to interpret this result as normal/abnormal . MPV (test code = 12.6 fL 9.5-12.9 06649-4) NRBC/100 WBC (test See_Comment [Automat ed code = 6587574518) message] The system which generated this result transmitted reference range : 0.0 - 10.0 /100 WBCs. The refer ence range was not u sed to interpret th is result as normal/abnormal . NRBC x10^3 (test code <0.01 See_Comment [Auto mated = 8019291020) message] The s ystem which generated this result transmitted reference range : 10*3/?L. The reference range was not used to interpret this result as normal/abnormal . GRAN MAT (NEUT) % 69.8 % (test code = 770-8) IMM GRAN % (test code 0.80 % = 8424348437) LYMPH % (test code = 21.0 % 736-9) MONO % (test code = 7.7 % 5905-5) EOS % (test code = 0.4 % 713-8) BASO % (test code = 0.3 % 706-2) GRAN MAT x10^3(ANC) 6.82 10*3/uL 1.88-7.09 (test code = 4096661358) IMM GRAN x10^3 (test 0.08 10*3/uL 0.00-0.06 H code = 5239099412) LYMPH x10^3 (test code 2.05 10*3/uL 1.32-3.29 = 731-0) MONO x10^3 (test code 0.75 10*3/uL 0.33-0.92 = 742-7) EOS x10^3 (test code = 0.04 10*3/uL 0.03-0.39 711-2) BASO x10^3 (test code 0.03 10*3/uL 0.01-0.07 = 704-7) Lab Interpretation Abnormal (test code = 74575-0) [facility] IMMUNE [id number] 23:35:13 Test Item Value Reference Range Interpretation Comments RHIG CANDIDATE? No- see comment Patient i s not a (test code = candidate for R hIg- 5055) Patient is Rh Positive.Perfor med at [facility] Laboratory Services - [facility] Blood [address] [place] [address] 24239Iznw Free: [phone] A No. [id number] [facility] CenterARTERIAL CORD [id number] 17:13:01 Test Item Value Reference Range Interpretation Comments BASE EXCESS, CORD mEq/L (test code = 0690791954) AC PH, CORD (BEAKER) 7.18-7.38 (test code = 7685750531) PC02, CORD (test code See_Comment [Auto mated message] The = 7591446355) system which g enerated this result transmit suyapa reference range : 32 - 66 mmHg. The refer ence range was not used to interpret this result as normal/abnormal . PO2, CORD (test code See_Comment [Autom ated message] The = 2819203033) system which g enerated this result transmit suyapa reference range : 10 - 30 mmHg. The refer ence range was not used to interpret this result as normal/abnormal . BICARBONATE, CORD See_Comment [Automate d message] The (test code = system which ge nerated this 8913060478) result transmit suyapa reference range : 17 - 27 mEq/L. The refe rence range was not used to interpret this result as normal/abnormal . [facility] CenterVENOUS CORD [id number] 17:11:40 Test Item Value Reference Range Interpretation Comments VENOUS BASE EXCESS, mEq/L CORD (test code = 0824632483) VENOUS PH, CORD (test 7.25-7.45 code = 7559505056) VENOUS PC02, CORD See_Comment [Automate d message] The (test code = system which ge nerated 7461534097) this result tra nsmitted reference range : 27 - 49 mmHg. The refer ence range was not used to interpret this result as normal/abnormal . VENOUS PO2, CORD (test See_Comment [Aut omated message] The code = 0027772346) system [facility] generated this result tra nsmitted reference range : 17 - 41 mmHg. The refer ence range was not used to interpret this result as normal/abnormal . VENOUS BICARBONATE, See_Comment [Automa suyapa message] The CORD (test code = system whi ch generated 7042973422) this result tra nsmitted reference range : 12 - 29 mEq/L. The refe rence range was not used to interpret this result as normal/abnormal . [facility] ONLY - SYPHILIS [id number] 16:20:41 Test Item Value Reference Range Interpretation Comments Syphilis IgG/IgM (test Non-reactive Non-reactive code = 93803-9) LEWIS (test code = LEWIS) Non-reactive - No serologic evidence of T. pallidum infection. Cannot exclude incubating or early syphilis. Submit a second specimen in 2-4 weeks if syphilis is clinically suspected. Equivocal - Further testing to follow. Reactive - Further testing to follow. Lab Interpretation (test Normal code = 33063-9) [facility] CenterHepatitis B Surface [id number] 09:33:43 Test Item Value Reference Range Interpretation Comments HBsAg Semi-Quantitative (test code = Negative Negative 5195-3) [facility] 1/2 AG-AB WITH [id number] 07:29:32 Test Item Value Reference Range Interpretation Comments HIV Negative Negative Semi-quantitative (test code = 89314-4) LEWIS (test code = Non-reactive for HIV-1 LEWIS) antigen and HIV-1/HIV-2 antibodies. ?No laboratory evidence of HIV infection. ?Repeat in 2-4 weeks if acute HIV infection is suspected. [facility] CenterUric Acid [id number] 06:34:29 Test Item Value Reference Range Interpretation Comments URIC ACID (test code = 3593832954) 4.8 mg/dL 2.9-6.0 Lab Interpretation (test code = Normal 26234-2) [facility] CenterSer [id number] 06:34:29 Test Item Value Reference Range Interpretation Comments CREATININE (test code 0.58 mg/dL 0.50-1.04 = 5329414143) eGFR (test code = mL/min/1.73m2 3906273394) LEWIS (test code = LEWIS) Association of [...] or urine or abnormalities in imaging tests). [facility] CenterSGOT (Asparate Amino Transfer)2021-08-25 06:34:29 Test Item Value Reference Range Interpretation Comments AST(SGOT) (test code = 0380045673) 18 U/L 13-40 Lab Interpretation (test code = Normal 81108-5) [facility] CenterAlanine Amino Transferase (SGPT)2021-08-25 06:34:29 Test Item Value Reference Range Interpretation Comments ALTv (test code = 1742-6) 10 U/L 5-35 Lab Interpretation (test code = Normal 62050-5) [facility] CenterLactate [id number] 06:21:29 Test Item Value Reference Range Interpretation Comments LDH (test code = 7905514609) 436 U/L 300-600 Lab Interpretation (test code = Normal 42687-1) [facility] CenterType and Screen - ONCE [id number] 04:09:47 Test Item Value Reference Range Interpretation Comments ABO & RH (test code O POSITIVE Performe d at [facility] = 20) Laboratory Serv [facility] Blood Bank3 [address] [facility] [address]Pbck Free: [phone] A No. [id number] IAT (test code = Negative Performed a t [facility] 1185) Laboratory Serv [facility] Blood Bank3 [address] [facility] [address]Gchf Free: [phone] A No. [id number] [facility] CenterCBC with [id number] 03:58:29 Test Item Value Reference Range Interpretation Comments WBC (test code = See_Comment [Automated 6690-2) message] The sy stem which generated this result transmitted reference range : 4.30 - 11.10 10*3/?L. The reference range was not used to interpret this result as normal/abnormal . RBC (test code = See_Comment [Automated 799-8) message] The sy stem which generated this [...] RDW-SD (test code = 43.8 fL 39.0-49.9 24618-5) RDW-CV (test code = 13.3 % 12.0-15.5 788-0) PLT (test code = See_Comment L [Automated 777-3) message] The sy stem which generated this result transmitted reference range : 166 - 358 10*3/ ?L. The reference r christie was not used to interpret this result as normal/abnormal . MPV (test code = 12.6 fL 9.5-12.9 43566-3) NRBC/100 WBC (test See_Comment [Automat ed code = 1915860397) message] The system which generated this result transmitted reference range : 0.0 - 10.0 /100 WBCs. The refer ence range was not u sed to interpret th is result as normal/abnormal . NRBC x10^3 (test code <0.01 See_Comment [Auto mated = [id number]) message] The s ystem which generated this result transmitted reference range : 10*3/?L. The reference range was not used to interpret this result as normal/abnormal . GRAN MAT (NEUT) % 59.4 % (test code = 770-8) IMM GRAN % (test code 0.90 % = 7568733807) LYMPH % (test code = 30.2 % 736-9) MONO % (test code = 8.6 % 5905-5) EOS % (test code = 0.5 % 713-8) BASO % (test code = 0.4 % 706-2) GRAN MAT x10^3(ANC) 4.63 10*3/uL 1.88-7.09 (test code = 3658138351) IMM GRAN x10^3 (test 0.07 10*3/uL 0.00-0.06 H code = 6521763887) LYMPH x10^3 (test code 2.35 10*3/uL 1.32-3.29 = 731-0) MONO x10^3 (test code 0.67 10*3/uL 0.33-0.92 = 742-7) EOS x10^3 (test code = 0.04 10*3/uL 0.03-0.39 711-2) BASO x10^3 (test code 0.03 10*3/uL 0.01-0.07 = 704-7) Lab Interpretation Abnormal (test code = 49374-3) [facility]"
[2021-11-04] MEDS ORDERED: IBUPROFEN 400 MG TAB ONE (21:31)
[2021-11-04 22:11] LABS: Absolute Lymphocytes (CBC) 1.2 K/uL (0.7-4.9); Hematocrit 33.2 % (36.0-45.0); Lymphocytes % 9.6 % (15.3-44.8); MCV 87.9 fL (80-100); MPV 10.2 fL (7.6-11.3); RBC Red Blood Cell Count 3.78 M/uL (3.86-4.86)
[2021-11-04 22:12] LABS: Albumin 2.8 g/dL (3.4-5.0); Bilirubin Total 0.5 mg/dL (0.2-1.0); Potassium 3.6 mmol/L (3.5-5.1); Protein, Total 6.2 g/dL (6.4-8.2)
[2021-11-04 22:19] LABS: Protime INR 1.36
--- NOTE | 2021-11-04 22:28 | EDPHYS ---
Physician Documentation [facility] Name: aMrlene Gates Age: 21 yrs Sex: Female : 2000 Arrival Date: 11/04/2021 Time: 20:03 Bed 28 Private MD: ED Physician Humberto Ceja HPI: 11/04 20:09 This 21 yrs old Female presents to ER via Ambulatory with complaints of Sepsis. jmm 20:09 Onset: The symptoms/episode began/occurred gradually. This is a 21-year-old female with jmm a history of asthma that presents emerged part with complaints of ongoing right flank pain. Patient was evaluated in the ER yesterday and diagnosed with pyelonephritis. Patient states having continued vomiting. Was evaluated in the ED and administered IV fluids along with Rocephin IV. Patient has not begun her home antibiotics. Patient returned to the ED upon request of Dr. Robert Eduardo with concerns of abnormal blood pressure.. Historical: - Allergies: 20:10 No Known Allergies; hb - PMHx: 20:10 Asthma; hb - Immunization history:: Adult Immunizations up to date. - Social history:: Smoking status: Patient denies any tobacco usage or history of. ROS: 20:09 Constitutional: Positive for body aches, chills. jmm 20:09 Abdomen/GI: Positive for abdominal pain, nausea and vomiting. 20:09 Back: Positive for flank pain. 20:09 All other systems are negative. Exam: 20:09 Constitutional: This is a well developed, well nourished patient who is awake, alert, jmm and in no acute distress. Head/Face: atraumatic. Eyes: EOMI, no conjunctival erythema appreciated ENT: Moist Mucus Membranes Neck: Trachea midline, Supple Chest/axilla: Normal chest wall appearance and motion. Cardiovascular: Regular rate and rhythm. No edema appreciated Respiratory: Normal respirations, no respiratory distress appreciated 20:09 Skin: General appearance color normal MS/ Extremity: Moves all extremities, no obvious deformities appreciated, no edema noted to the lower extremities Neuro: Awake and alert Psych: Behavior is normal, Mood is normal, Patient is cooperative and pleasant 20:09 Abdomen/GI: Inspection: abdomen appears normal, Bowel sounds: normal, Palpation: soft, mild abdominal tenderness, in the right upper quadrant and right lower quadrant. 20:09 Back: CVA tenderness, that is moderate, is noted on the right. Vital Signs: 20:06 BP 103 / 62; Pulse 114; Resp 24; Temp 101.9; Pulse Ox 98% on R/A; Weight 78.93 kg; hb Height 5 ft. 7 in. (170.18 cm); Pain 0/10; 11/05 01:06 BP 90 / 59; Pulse 74; Resp 23 S; Temp 98.7(O); Pulse Ox 98% on R/A; as6 20:46 BP 122 / 76; Pulse 70; Resp 16; Temp 98.3(O); Pulse Ox 100% on R/A; Pain 2/10; ph 11/04 20:06 Body Mass Index 27.25 (78.93 kg, 170.18 cm) hb MDM: 11/04 20:16 Patient medically screened. [facility] 22:23 Data reviewed: vital signs, nurses notes. [facility] 22:24 ED course: SIRS Criteria met at 2224. Elevated heart rate, increased respirations, temp jmm of 101.9, and a white blood cell count of 12.6. 22:26 Counseling: I had a detailed discussion with the patient and/or guardian regarding: the [facility] historical points, exam findings, and any diagnostic results supporting the discharge/admit diagnosis, lab results, the need for further work-up and treatment in the hospital. ED course: I discussed the patient with Amos Eckert whom accepted the patient to Dr. Lazo's service. . 22:29 ED course: Lactate is normal. [facility] 11/04 20:09 Order name: Blood Culture Adult (2) [facility] 11/04 20:09 Order name: CBC with Diff; Complete Time: 22:19 [facility] 11/04 20:09 Order name: CMP; Complete Time: 22:19 [facility] 11/04 20:09 Order name: Lactate; Complete Time: 22:29 [facility] 11/04 20:09 Order name: Protime (+inr); Complete Time: 22:24 [facility] 11/04 20:09 Order name: Ptt, Activated; Complete Time: 22:24 [facility] 11/04 21:58 Order name: Glucose, Ancillary Testing; Complete Time: 22:11 [facility] 11/04 22:20 Order name: SARS RAPID; Complete Time: 02:24 [facility] 11/04 22:35 Order name: Urine Microscopic Only; Complete Time: 02:24 [facility] 11/04 22:35 Order name: Urine Culture [facility] 11/05 01:04 Order name: Urine Dipstick-Ancillary; Complete Time: 02:24 [facility] 11/05 01:16 Order name: Urine --Ancillary (enter results) 11/05 01:28 Order name: Urine --Ancillary; Complete Time: 02:24 [facility] 11/05 03:31 Order name: CBC with Automated Diff [facility] 11/04 20:09 Order name: Accucheck; Complete Time: 21:44 [facility] 11/04 20:09 Order name: Cardiac monitoring; Complete Time: 01:05 [facility] 11/04 20:09 Order name: EKG - Nurse/Tech; Complete Time: 21:44 [facility] 11/04 20:09 Order name: IV Saline Lock - Large Bore; Complete Time: 01:41 [facility] 11/04 20:09 Order name: Labs collected and sent; Complete Time: 21:44 [facility] 11/04 20:09 Order name: O2 Per Protocol; Complete Time: 01:05 [facility] 11/04 20:09 Order name: O2 Sat Monitoring; Complete Time: 01:05 [facility] 11/04 22:35 Order name: Urine Dipstick-Ancillary (obtain specimen); Complete Time: 01:05 [facility] 11/05 03:57 Order name: Comprehensive Metabolic Panel [facility] 11/05 03:57 Order name: Magnesium [facility] 11/05 11:53 Order name: Lactate [facility] 11/05 12:54 Order name: Blood Culture [facility] Administered Medications: 21:35 Drug: Ibuprofen 400 mg Route: PO; as6 11/05 06:24 Follow up: Response: No adverse reaction as6 Disposition Summary: 11/04/21 22:27 Hospitalization Ordered Hospitalization Status: Inpatient Admission jm Provider: Homer Lazo Condition: Stable minor Problem: new jmm Symptoms: are unchanged jm Bed/Room Type: Standard [facility](11/05/21 20:10) ph Room Assignment: [facility]-(11/05/21 20:10) ph Diagnosis - Other specified sepsis jmm - Pyelonephritis jm Forms: - Medication Reconciliation Form jmm - SBAR form jm Signatures: Dispatcher [employer] [facility] Kervin Tabor PA PA [facility] Amos Eckert, CONTACT CENTER AGENT-C CONTACT CENTER AGENT-Cla1 Nandini Valiente, RN RN ph Irene Sarmiento, MATILDE RN Ca Sesay, MATILDE CLAYTON Megan Wilson Ashby, RN RN as6 Corrections: (The following items were deleted from the chart) 11/04 22:25 22:24 ED course: SIRS Criteria met at 2224. Elevated heart rate, increased [facility] respirations, temp of 101.9, and a white blood cell count of. [facility] 11/05 01:08 11/04 22:27 Telemetry/MedSurg (Inpatient) [facility] 11/05 01:08 11/04 22:27 [facility] 11/05 17:03 01:08 [facility] ER HOLD cg eb 17:03 01:08 ERHOLD- cg eb 19:44 17:03 428 eb cg 20:10 17:03 Telemetry/MedSurg (Inpatient) eb ph 20:10 19:44 cg ph
--- NOTE | 2021-11-04 22:28 | ER ---
Nurse's Notes [facility] Name: Marlene Gates Age: 21 yrs Sex: Female : 2000 Arrival Date: 11/04/2021 Time: 20:03 Bed 28 Private MD: Diagnosis: Other specified sepsis;Pyelonephritis Presentation: 11/04 20:06 Chief complaint: Right flank pain x 2-3 days, instructed by MD to return to ED for hb possible sepsis. Reports TMAX 102.7 today. Coronavirus screen: At this time, the client does not indicate any symptoms associated with coronavirus-19. Ebola Screen: No symptoms or risks identified at this time. Risk Assessment: Do you want to hurt yourself or someone else? Patient reports no desire to harm self or others. Onset of symptoms was November 02, 2021. 20:06 Method Of Arrival: Ambulatory hb 20:06 Acuity: KARLOS 2 hb 11/05 06:23 Initial Sepsis Screen: Does the patient meet any 2 criteria? Temp <36.0*C (96.8*F)) or as6 > 38.3*C (100.9*F). HR > 90 bpm. Yes Does the patient have a suspected source of infection? Yes: Dysuria/Frequency/Urgency/UTI. Historical: - Allergies: 11/04 20:10 No Known Allergies; hb - PMHx: 20:10 Asthma; hb - Immunization history:: Adult Immunizations up to date. - Social history:: Smoking status: Patient denies any tobacco usage or history of. Screenin/02 02:35 Abuse screen: Denies threats or abuse. Denies injuries from another. Nutritional as6 screening: No deficits noted. Tuberculosis screening: No symptoms or risk factors identified. Fall Risk None identified. Assessment: 11/04 21:30 General: Appears ill, Behavior is calm, cooperative. Pain: Complains of pain in right as6 flank and right lower quadrant and right upper quadrant. Neuro: Level of Consciousness is awake, alert. Respiratory: Respiratory effort is even, unlabored. : Reports pain in right flank(s), in lower back. Vital Signs: 20:06 BP 103 / 62; Pulse 114; Resp 24; Temp 101.9; Pulse Ox 98% on R/A; Weight 78.93 kg; hb Height 5 ft. 7 in. (170.18 cm); Pain 0/10; 02 01:06 BP 90 / 59; Pulse 74; Resp 23 S; Temp 98.7(O); Pulse Ox 98% on R/A; as6 20:46 BP 122 / 76; Pulse 70; Resp 16; Temp 98.3(O); Pulse Ox 100% on R/A; Pain 2/10; ph 11/04 20:06 Body Mass Index 27.25 (78.93 kg, 170.18 cm) ED Course: 11/04 20:03 Patient arrived in ED. [facility] 20:08 Kervin Tabor PA is PHCP. [facility] 20:08 Humberto Ceja MD is Attending Physician. [facility] 20:10 Triage completed. hb 20:10 Arm band placed on. hb 20:23 Rodney Bynum, MATILDE is Primary Nurse. as6 22:27 Homer Lazo MD is Hospitalizing Provider. [facility] 11/05 01:00 Inserted saline lock: 22 gauge in left antecubital area, using aseptic technique. as6 06:22 No provider procedures requiring assistance completed. as6 06:23 Bed in low position. Call light in reach. Side rails up X2. as6 06:23 IV discontinued, intact, bleeding controlled, No redness/swelling at site. Pressure as6 dressing applied. 07:53 Primary Nurse role handed off by Rodney Bynum RN 17:14 Nandini Valiente, MATILDE is Primary Nurse. ph Administered Medications: 11/04 21:35 Drug: Ibuprofen 400 mg Route: PO; as6 11/05 06:24 Follow up: Response: No adverse reaction as6 Medication: 06:23 VIS not applicable for this client. as6 Outcome: 11/04 22:27 Decision to Hospitalize by Provider. [facility] 11/05 06:23 Admitted to ER Hold. Please see [facility] for further documentation. as6 Condition: stable Instructed on the need for admit. 21:07 Patient left the ED. 7 Signatures: Kervin Tabor PA PA Nandini Ward, MATILDE LCAYTON Ca Sesay RN RN Megan Wilson Ebonie Cantor RN RN bm7 Leeanna Fuller ja2 Slawson, Linden, RN RN as6
--- NOTE | 2021-11-04 22:53 | P.HP ---
Certification for Inpatient Patient admitted to: Inpatient With expected LOS: >2 Midnights Patient will require the following post-hospital care: None Practitioner: I am a practitioner with admitting privileges, knowledge of patient current condition, hospital course, and medical plan of care. Services: Services provided to patient in accordance with Admission requirements found in Title 42 Section 412.3 of the Code of Federal Regulations <Amos Eckert - Last Filed: 11/04/21 22:50> Patient History Date of Service: 11/04/21 Reason for admission: Sepsis, pyelonephritis History of Present Illness: 21-year-old otherwise healthy female presents the emergency department for suspected sepsis. Patient was seen in the emergency department on 11/03 in the evening and diagnosed with right sided pyelonephritis. She was discharged home on antibiotics which she has yet to get filled, she presented again to the emergency department during the day today and was given IV fluids and antibiotics and discharged, attending ER physician's concerned about multiple low blood pressure readings while she was in the emergency department and called her back to be admitted to the hospital. She was reevaluated in the emergency department her labs were significant for leukocytosis low white blood cell count 12.6 fever temperature 101.9 heart rate 114 respiratory rate 24 with source of infectionpyelonephritis criteria for sepsis lactic acid 1.0 no severe sepsis or septic shock at this time. Blood and urine cultures obtained Rocephin given earlier today during previous visit. 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 - Social History Smoking Status: Never smoker Alcohol use: No CD- Drugs: No Caffeine use: No Place of Residence: Home <Amos Eckert - Last Filed: 11/04/21 22:50> Date of Service: 11/06/21 <Homre Lazo - Last Filed: 11/06/21 00:43> Allergies No Known Allergies Allergy (Unverified 04/17/18 01:06) Home Medications: Codeine/APAP [Tylenol W/Codeine #3 tab] 1 tab PO Q6HP PRN #10 tab 04/18/18 Review of Systems 10-point ROS is otherwise unremarkable General: Fever, Chills Genitourinary: Other (right flank pain) <Amos Eckert - Last Filed: 11/04/21 22:50> Physical Examination - Physical Exam General: Alert, In no apparent distress, Oriented x3 HEENT: Atraumatic, PERRLA, Mucous membr. moist/pink, EOMI, Sclerae nonicteric Neck: Supple, 2+ carotid pulse no bruit, No LAD, Without JVD or thyroid abnormality Respiratory: Clear to auscultation bilaterally, Normal air movement Cardiovascular: Regular rate/rhythm, Normal S1 S2 Capillary refill: <2 Seconds Gastrointestinal: Normal bowel sounds, No tenderness Musculoskeletal: Other (Mild right flank/cva tenderness) Integumentary: No rashes Neurological: Normal speech, Normal strength at 5/5 x4 extr, Normal tone, Normal affect Lymphatics: No axilla or inguinal lymphadenopathy - Studies Laboratory Data (last 24 hrs) 11/04/21 21:35: PT 15.0 H, INR 1.36, APTT 30.0 11/04/21 21:35: Sodium 141, Potassium 3.6, BUN 14, Creatinine 1.06, Glucose 111 H, Total Bilirubin 0.5, AST 15, ALT 18, Alkaline Phosphatase 72 11/04/21 21:35: WBC 12.60 H D, Hgb 11.0 L, Hct 33.2 L, Plt Count 121 L <Amos Eckert - Last Filed: 11/04/21 22:50> Assessment and Plan - Plan Assessment: Sepsis secondary to right-sided pyelonephritis Plan: Sepsis secondary to right-sided pyelonephritis: Blood cultures negative thus far repeated today, urine culture pending and repeated. Received Rocephin earlier today does not meet criteria for severe sepsis or septic shock met SIRS criteria for tachycardia, fever, tachypnea, leukocytosis with source of infection. Patient with mild right-sided CVA tenderness. Await urine culture, continue antibiotics/Rocephin. DVT PPX: Lovenox Code status: Full Discharge Plan: Home Plan to discharge in: 48 Hours - Advance Directives Does patient have a Living Will: No Does patient have a Durable POA for Healthcare: No - Code Status/Comfort Care Code Status Assessed: Yes (Full code) Critical Care: No Time Spent Managing Pts Care (In Minutes): 70 <Amos Eckert - Last Filed: 11/04/21 22:50> Physician Review: Patient Assessed, Agree with Above Assessment and Plan <Homer Lazo - Last Filed: 11/06/21 00:43>
[2021-11-05 01:03] LABS: Urine Blood 1+ (Negative); Urine Glucose Negative (Negative); Urine Protein 2+ (Negative); Urine Specific Gravity 1.025 (1.005-1.030); Urine pH 5.5 (5.0-7.0)
[2021-11-05] MEDS ORDERED: ONDANSETRON 4 MG/2 ML VIAL IV PRN (01:10)
[2021-11-05] MEDS: Ringers Lactate 1,000 ML IV SCH ×2 (01:10→09:10)
[2021-11-05 01:28] LABS: Urine Specific Gravity/Preg 1.025 (1.005-1.030)
[2021-11-05] MEDS ORDERED: Ringers Lactate 1,000 ML IV ONE ×2 (01:29→12:30)
[2021-11-05 01:35] LABS: SARS-CoV-2 Antigen Rapid Res Negative (Negative)
[2021-11-05 01:58] LABS: Urine Bacteria <20 /HPF (<20); Urine Mucus 1+ /HPF (None Seen); Urine RBC 21-50 /HPF (None Seen); Urine WBC Clump Rare /HPF (None Seen)
[2021-11-05 02:36] VITALS: BMI 27.2
[2021-11-05 03:26] LABS: Absolute Lymphocytes (CBC) 1.3 K/uL (0.7-4.9); Hematocrit 31.8 % (36.0-45.0); Lymphocytes % 10.1 % (15.3-44.8); MCV 86.7 fL (80-100); MPV 10.1 fL (7.6-11.3); RBC Red Blood Cell Count 3.67 M/uL (3.86-4.86)
[2021-11-05 03:45] LABS: Albumin 2.4 g/dL (3.4-5.0); Bilirubin Total 0.5 mg/dL (0.2-1.0); Potassium 3.6 mmol/L (3.5-5.1); Protein, Total 5.5 g/dL (6.4-8.2)
[2021-11-05] MEDS ORDERED: SODIUM CHL 0.9% 1000 ML BAG IV ONE (04:10)
[2021-11-05] MEDS ORDERED: NA CHLORIDE 0.9% IV ONE (04:10)
--- NOTE | 2021-11-05 04:13 | P.INFCA ---
Sepsis Focused Assessment - Focused Assessment Complete? Sepsis Focused Assessment Completed?: Yes - Sepsis Screen Result Septic Shock: Positive - Evaluation Current stage of sepsis: Septic shock - Vital Signs Reviewed: Yes Heart rate: 80 Blood Pressure: 75/51 - Examination Date exam was performed: 11/05/21 Time exam was performed: 04:11 Heart: Regular rate/rhythm Lungs: Clear bilaterally Peripheral pulses: 3+ Normal Peripheral pulse location: Radial Capillary refill: <2 Seconds Skin examination: Normal turgor Comments: Time 0 0400 second BP systolic <90. 30cc/kg iVF ordered, repeat lac/culture
[2021-11-05] MEDS ORDERED: NA CHLORIDE 0.9% 2,000 ML ONE (04:21)
--- NOTE | 2021-11-05 05:08 | P.PN ---
Date of Service: 11/05/21 Sepsis reassessment complete, BP improved with IVF bolus.
[2021-11-05] MEDS: CEFTRIAXONE 1,000 MG in NA CHLORIDE 0.9% 50 ML IVPB SCH (09:00)
[2021-11-05] MEDS: ENOXAPARIN 40 MG/0.4 ML SQ SCH (09:00)
[2021-11-05] MEDS ORDERED: NA CHLORIDE 0.9% 50 ML ONE (10:27)
[2021-11-05] MEDS ORDERED: CEFTRIAXONE 1000 MG/VIAL ONE (10:27)
[2021-11-05] MEDS: ACETAMINOPHEN 500 MG TAB PO PRN (12:40)
[2021-11-05] MEDS ORDERED: ACETAMINOPHEN 500 MG TAB ONE (12:44)
--- NOTE | 2021-11-05 13:58 | EKG ---
Test Date: 2021-11-04 Test Time: 21:23:26 Artistic Associate: MEASUREMENT RESULTS: Intervals: Rate: 90 IL: 180 QRSD: 78 QT: 346 QTc: 423 [place]: P: 56 IL: 180 QRS: 77 T: 66 INTERPRETIVE STATEMENTS: Normal sinus rhythm Possible Left atrial enlargement Borderline ECG Compared to ECG 11/03/2021 22:56:39 No significant changes Electronically Signed On 11-05-21 13:57:36 CDT by Sha Lewis
--- NOTE | 2021-11-05 20:40 | P.PN ---
Subjective Date of Service: 11/06/21 Chief Complaint: Sepsis, pyelonephritis No acute events since admission. She reports that her right-sided flank pain is improved with the IV antibiotics. She endorses no additional concerns this morning. Review of Systems 10-point ROS is otherwise unremarkable Genitourinary: Dysuria Musculoskeletal: Back Pain (right flank) Physical Examination - Vital Signs Temperature: 98 F Blood Pressure: 114/72 Pulse: 89 Respirations: 18 Pulse Ox (%): 100 - Physical Exam General: Alert, Oriented x3, Mild distress Neck: Supple, JVD not distended Respiratory: Clear to auscultation bilaterally, Normal air movement Cardiovascular: No edema, Regular rate/rhythm, Normal S1 S2, No gallops, No rubs, No murmurs Gastrointestinal: Normal bowel sounds, Soft and benign, No tenderness, No rebound, No guarding Integumentary: No rashes Neurological: Normal speech, Cranial nerves 3-12 intact, Normal affect - Studies Laboratory Data (last 24 hrs) 11/04/21 21:35: PT 15.0 H, INR 1.36, APTT 30.0 11/04/21 21:35: Sodium 141, Potassium 3.6, BUN 14, Creatinine 1.06, Glucose 111 H, Total Bilirubin 0.5, AST 15, ALT 18, Alkaline Phosphatase 72 11/04/21 21:35: WBC 12.60 H D, Hgb 11.0 L, Hct 33.2 L, Plt Count 121 L Assessment And Plan - Plan # Septic Shock likely secondary to Right-Sided Pyelitis with Pyelonephritis She meets SIRS criteria based on temperature > 100.9 F, HR > 90 bpm, RR > 20 breaths/min,, WBC > 12,000, and the suspected source is urinary. Severe sepsis is suspected due to concern for tissue hypoperfusion/organ dysfunction based on hypotension (SBP < 90, MAP < 65). Septic shock is suspected due to SBP < 90 mmHg , MAP <65. - Sepsis order set was initiated - Lactate trend was 1.0 -> 1.2 - Blood cultures drawn before antibiotics were given - Broad spectrum antibiotics started: Ceftriaxone - In regards to fluids: - 30 mL/kg of IV fluid was given based on patient's actual body weight - Sepsis reassessment completed at 05:08 AM by Amos Eckert NP on 11/05/2021 Homer Lazo M.D.
[2021-11-05 22:32] VITALS: O2SAT 100
[2021-11-06] MEDS: Ringers Lactate 1,000 ML IV SCH ×3 (01:10→18:02)
[2021-11-06 06:35] LABS: Absolute Lymphocytes (CBC) 1.4 K/uL (0.7-4.9); Hematocrit 30.2 % (36.0-45.0); Lymphocytes % 17.5 % (15.3-44.8); MCV 85.1 fL (80-100); RBC Red Blood Cell Count 3.54 M/uL (3.86-4.86)
[2021-11-06 06:49] LABS: Albumin 2.2 g/dL (3.4-5.0); Bilirubin Total 0.3 mg/dL (0.2-1.0); Magnesium 1.8 mg/dL (1.8-2.4); Potassium 3.2 mmol/L (3.5-5.1); Protein, Total 5.4 g/dL (6.4-8.2)
[2021-11-06] MEDS ORDERED: POTASSIUM 25 MEQ EFFERV TAB PO ONE (08:00)
[2021-11-06] MEDS: CEFTRIAXONE 1,000 MG in NA CHLORIDE 0.9% 50 ML IVPB SCH (08:48)
[2021-11-06] MEDS: ENOXAPARIN 40 MG/0.4 ML SQ SCH (09:00)
[2021-11-06] MEDS ORDERED: POTASSIUM CL SA 10 MEQ TAB PO ONE (15:44)
--- NOTE | 2021-11-06 19:54 | P.PN ---
Subjective Date of Service: 11/06/21 Chief Complaint: Sepsis, pyelonephritis Subjective: Improving No acute events overnight. She appears significantly better clinically. She reports that her pain has improved from an 8-9/10 to a 4-5/10. Her blood pressures have remained stable. Her urine culture has returned positive for nevarez- sensitive Escherichia Coli. Blood cultures reveal no growth to date. Review of Systems 10-point ROS is otherwise unremarkable Musculoskeletal: Back Pain (right-sided, improved) Physical Examination - Vital Signs Temperature: 98.5 F Blood Pressure: 117/68 Pulse: 72 Respirations: 18 Pulse Ox (%): 100 - Physical Exam General: Alert, In no apparent distress, Oriented x3 HEENT: Atraumatic, PERRLA, Mucous membr. moist/pink, EOMI, Sclerae nonicteric Neck: Supple, JVD not distended Respiratory: Clear to auscultation bilaterally, Normal air movement Cardiovascular: No edema, Regular rate/rhythm, Normal S1 S2, No gallops, No rubs, No murmurs Gastrointestinal: Normal bowel sounds, Soft and benign, Non-distended, No tenderness, No rebound, No guarding Musculoskeletal: No clubbing, Other (minimal right CVA tenderness) Integumentary: No rashes Neurological: Normal speech, Cranial nerves 3-12 intact, Normal affect Assessment And Plan - Plan # Septic Shock likely secondary to Nevarez-Sensitive Escherichia Coli Right-Sided Pyelitis with Pyelonephritis - improved She meets SIRS criteria based on temperature > 100.9 F, HR > 90 bpm, RR > 20 breaths/min,, WBC > 12,000, and the suspected source is urinary. Severe sepsis is suspected due to concern for tissue hypoperfusion/organ dysfunction based on hypotension (SBP < 90, MAP < 65). Septic shock is suspected due to SBP < 90 mmHg , MAP <65. - Sepsis order set was initiated - Lactate trend was 1.0 -> 1.2 - Blood cultures drawn before antibiotics were given - no growth to date - Broad spectrum antibiotics started: Ceftriaxone - In regards to fluids: - 30 mL/kg of IV fluid was given based on patient's actual body weight - Sepsis reassessment completed at 05:08 AM by Amos Eckert NP on 11/05/2021 - Possible discharge tomorrow if she remains hemodynamically stable and blood cultures remain negative Homer Lazo M.D.
[2021-11-06] MEDS: ACETAMINOPHEN 500 MG TAB PO PRN (19:59)
[2021-11-07] MEDS: Ringers Lactate 1,000 ML IV SCH ×3 (02:03→18:28)
[2021-11-07 06:27] LABS: Absolute Lymphocytes (CBC) 1.5 K/uL (0.7-4.9); Lymphocytes % 29.1 % (15.3-44.8); MCV 86.8 fL (80-100); MPV 9.2 fL (7.6-11.3); RBC Red Blood Cell Count 3.46 M/uL (3.86-4.86)
[2021-11-07 06:43] LABS: Albumin 2.1 g/dL (3.4-5.0); Bilirubin Total 0.1 mg/dL (0.2-1.0); Magnesium 1.8 mg/dL (1.8-2.4); Potassium 3.3 mmol/L (3.5-5.1); Protein, Total 5.4 g/dL (6.4-8.2)
[2021-11-07] MEDS: CEFTRIAXONE 1,000 MG in NA CHLORIDE 0.9% 50 ML IVPB SCH (08:46)
[2021-11-07] MEDS: ENOXAPARIN 40 MG/0.4 ML SQ SCH (08:46)
[2021-11-07] MEDS ORDERED: POTASSIUM 25 MEQ EFFERV TAB PO ONE (09:00)
--- NOTE | 2021-11-07 17:43 | P.PN ---
Subjective Date of Service: 11/07/21 Chief Complaint: Sepsis, pyelonephritis No acute events overnight. She appears significantly better clinically. She reports that her pain is now a 2-3/10 in severity. Spiked temperature to 100.3 F overnight. Spoke with Dr. Joe, who recommends that she be without a fever for 24 hours prior to discharge. Anticipate possible discharge tomorrow. Review of Systems 10-point ROS is otherwise unremarkable Musculoskeletal: Back Pain (right-flank) Physical Examination - Vital Signs Temperature: 98.0 F Blood Pressure: 125/69 Pulse: 62 Respirations: 18 Pulse Ox (%): 97 Assessment And Plan - Plan - Physical Exam General: Alert, In no apparent distress, Oriented x3 HEENT: Atraumatic, PERRLA, Mucous membr. moist/pink, EOMI, Sclerae nonicteric Neck: Supple, JVD not distended Respiratory: Clear to auscultation bilaterally, Normal air movement Cardiovascular: No edema, Regular rate/rhythm, Normal S1 S2, No gallops, No rubs, No murmurs Gastrointestinal: Normal bowel sounds, Soft and benign, Non-distended, No tenderness, No rebound, No guarding Musculoskeletal: No clubbing, Other (minimal right CVA tenderness) Integumentary: No rashes Neurological: Normal speech, Cranial nerves 3-12 intact, Normal affect # Septic Shock likely secondary to Burton-Sensitive Escherichia Coli Right-Sided Pyelitis with Pyelonephritis - improved She meets SIRS criteria based on temperature > 100.9 F, HR > 90 bpm, RR > 20 breaths/min,, WBC > 12,000, and the suspected source is urinary. Severe sepsis is suspected due to concern for tissue hypoperfusion/organ dysfunction based on hypotension (SBP < 90, MAP < 65). Septic shock is suspected due to SBP < 90 mmHg , MAP <65. - Sepsis order set was initiated - Lactate trend was 1.0 -> 1.2 - Blood cultures drawn before antibiotics were given - no growth to date - Broad spectrum antibiotics started: Ceftriaxone - In regards to fluids: - 30 mL/kg of IV fluid was given based on patient's actual body weight - Sepsis reassessment completed at 05:08 AM by Amos Eckert NP on 11/05/2021 - Possible discharge tomorrow morning if: (1) she remains hemodynamically stable, (2) she remains afebrile for 24 hours, and (3) blood cultures remain negative Homer Lazo M.D.
--- NOTE | 2021-11-08 03:09 | P.DS ---
Admission Date: 11/04/21 Discharge Date: 11/08/21 Disposition: ROUTINE DISCHARGE Discharge Condition: GOOD Reason for Admission: Sepsis, pyelonephritis Consultations: None Procedures: CT abdomen pelvis with contrast 11/05/2019 FINDINGS: Thoracic: No significant abnormality. Hepatobiliary: No concerning hepatic lesion identified. The portal veins are patent. The gallbladder is unremarkable. No biliary ductal dilatation. Pancreas: Unremarkable. Spleen: Unremarkable. Gastrointestinal: No evidence of bowel obstruction or perienteric inflammation. The appendix is normal. Adrenals: No abnormality identified in either adrenal gland. Renal: There are faint regions of geographic hypodensity in the right renal cortex. No walled off fluid collection. Mild urothelial thickening on the right. No hydronephrosis or urolithiasis. Bladder/Reproductive: Unremarkable appearance of the urinary bladder by CT technique. Multifocal small uterine hypodensities and contour irregularity suggestive of fibroids. Vascular/Lymphatics: No lymphadenopathy identified by CT size criteria. Abdominal aorta is normal in caliber. Musculoskeletal: No concerning osseous lesion identified. Fluid / peritoneum: No significant free fluid. No free intraperitoneal air identified. IMPRESSION 1. Findings suggestive of right-sided pyelitis and pyelonephritis. 2. No hydronephrosis or fluid collection. Abdominal ultrasound 11/04/2019 CLINICAL HISTORY: Abdominal pain. Right upper quadrant pain COMPARISON: None. FINDINGS: The patient was not NPO. This results in the gallbladder being contracted which limits evaluation. A gallstone is not seen. Gallbladder wall is not thickened. The biliary tree is normal caliber. IMPRESSION: Grossly normal gallbladder ultrasound Chest x-ray 11/04/2019 FINDINGS: The lungs appear clear of acute infiltrate. The heart is normal size IMPRESSION: No acute abnormalities displayed Urine culture 11/03/2021 Pansensitive E. coli Brief History of Present Illness: 21-year-old otherwise healthy female presents the emergency department for suspected sepsis. Patient was seen in the emergency department on 11/03 in the evening and diagnosed with right sided pyelonephritis. She was discharged home on antibiotics which she has yet to get filled, she presented again to the emergency department during the day today and was given IV fluids and antibiotics and discharged, attending ER physician's concerned about multiple low blood pressure readings while she was in the emergency department and called her back to be admitted to the hospital. She was reevaluated in the emergency department her labs were significant for leukocytosis low white blood cell count 12.6 fever temperature 101.9 heart rate 114 respiratory rate 24 with source of infectionpyelonephritis criteria for sepsis lactic acid 1.0 no severe sepsis or septic shock at this time. Blood and urine cultures obtained Rocephin given earlier today during previous visit. Hospital Course: Patient was admitted on 11/04/2021 for pyonephritis during her hospitalization she did develop septic shock secondary to her pyelonephritis she was treated with IV antibioticsRocephin during her hospitalization and has had significant improvement. She has now been fever free for 24 hours her urine culture grew pansensitive E. coli. Vital signs are stable she is been instructed to take cefdinir 300 mg p.o. twice daily for the next 10 days and follow-up with her primary care doctor in the next 3 to 5 days with strict return precautions. Patient deemed medically stable at this time for discharge. Vital Signs/Physical Exam: Temp Pulse Resp BP Pulse Ox 97.8 F 62 18 120/79 100 11/07/21 23:36 11/07/21 23:36 11/07/21 23:36 11/07/21 23:36 11/07/21 23:36 General: Alert, In no apparent distress, Oriented x3 HEENT: Atraumatic, PERRLA, EOMI Neck: Supple, JVD not distended Respiratory: Clear to auscultation bilaterally, Normal air movement Cardiovascular: Regular rate/rhythm, Normal S1 S2 Gastrointestinal: Normal bowel sounds, No tenderness Musculoskeletal: No tenderness Integumentary: No rashes Neurological: Normal speech, Normal tone, Normal affect Laboratory Data at Discharge: WBC 5.10 K/uL (4.3-10.9) D 11/07/21 06:18 Hgb 10.1 g/dL (12.0-15.0) L 11/07/21 06:18 Hct 30.0 % (36.0-45.0) L 11/07/21 06:18 Plt Count 179 K/uL (152-406) 11/07/21 06:18 PT 15.0 SECONDS (9.5-12.5) H 11/04/21 21:35 INR 1.36 11/04/21 21:35 APTT 30.0 SECONDS (24.3-36.9) 11/04/21 21:35 Sodium 142 mmol/L (136-145) 11/07/21 06:18 Potassium 4.0 mmol/L (3.5-5.1) 11/07/21 14:50 BUN 5 mg/dL (7-18) L 11/07/21 06:18 Creatinine 0.61 mg/dL (0.55-1.3) 11/07/21 06:18 Glucose 91 mg/dL (74-106) 11/07/21 06:18 Magnesium 1.8 mg/dL (1.8-2.4) 11/07/21 06:18 Total Bilirubin 0.1 mg/dL (0.2-1.0) L 11/07/21 06:18 AST 18 U/L (15-37) 11/07/21 06:18 ALT 17 U/L (12-78) 11/07/21 06:18 Alkaline Phosphatase 60 U/L (45-117) 11/07/21 06:18 Home Medications: Codeine/APAP [Tylenol W/Codeine #3 tab] 1 tab PO Q6HP PRN #10 tab 04/18/18 Cefdinir [Cefdinir*] 300 mg PO BID #20 cap 11/08/21 New Medications: Cefdinir [Cefdinir*] 300 mg PO BID #20 cap Physician Discharge Instructions: To whom it may concern, A family member of Viki Durham has been under the care of [facility] since 11/03/2021. The family member's anticipated discharge is 11/08/2021. Viki Johnson may return to work on 11/09/2021. Homer Lazo MD Diet: Regular Activity: Ad oscar Followup: Isha Ray FNPC [Primary Care Provider] - 2-3 Days Time spent managing pt's care (in minutes): 20
[2021-11-08 06:14] LABS: Absolute Lymphocytes (CBC) 1.8 K/uL (0.7-4.9); Hematocrit 32.2 % (36.0-45.0); Lymphocytes % 37.9 % (15.3-44.8); MCV 86.1 fL (80-100); MPV 8.9 fL (7.6-11.3); RBC Red Blood Cell Count 3.74 M/uL (3.86-4.86)
[2021-11-08 06:27] LABS: Potassium 3.6 mmol/L (3.5-5.1)
[2021-11-08 09:01] VITALS: BP 109/61; TEMP 99.4
== END 2021-11-08 09:25 | disposition home or self-care (01) | DRG 871 ==
LOC: ER 20:01 → ERHOLD 22:44 → 2ND-WC 11-05 20:47
PROVIDERS: ADMIT Internal Medicine; ATTEND Internal Medicine
DX: A41.9 Sepsis, unspecified organism (principal); R65.21 Severe sepsis with septic shock; N10 Acute pyelonephritis; B96.20 Unspecified Escherichia coli [E. coli] as the cause of diseases classified elsewhere; Z20.822 Contact with and (suspected) exposure to COVID-19
CPT/HCPCS: 36415; 80048; 80053; 81003; 81015; 81025; 82947; 83605; 83735; 84132; 85025; 85610; 85730; 87040; 87811; 93005; 96361; 96374; 99283; 99285; J1650; J2405; J7030; J7120

== ENCOUNTER 2023-08-25 21:26 | Emergency (ER) | payer OTHER ==
--- NOTE | 2023-08-25 23:44 | EDPHYS ---
Physician Documentation [facility] Name: Marlene Gates Age: 22 yrs Sex: Female : 2000 Arrival Date: 08/25/2023 Time: 21:26 Bed IW1 Private MD: ED Physician Shane Porras HPI: 08/24 22:20 This 22 yrs old Female presents to ER via Ambulatory with complaints of Sore Throat. cp 22:20 The patient presents with sore throat. The patient describes throat pain as worse when cp swallowing. Onset: The symptoms/episode began/occurred yesterday. Severity of symptoms: in the emergency department the symptoms are unchanged, despite home interventions. Associated signs and symptoms: Pertinent positives: body aches, Pertinent negatives fever. 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 Flu vaccine is not up to date. - Infectious Disease History:: Denies. - Social history:: Smoking status: Patient denies any tobacco usage or history of. Patient/guardian denies using alcohol, street drugs, IV drugs. ROS: 22:25 Constitutional: Negative for fever, poor PO intake, cp 22:25 Eyes: Negative for injury, pain, redness, and discharge, cp 22:25 ENT: Positive for sore throat, 22:25 Respiratory: Negative for cough, shortness of breath, wheezing, 22:25 Abdomen/GI: Negative for abdominal pain, vomiting, diarrhea, constipation, 22:25 Skin: Negative for rash, 22:25 Neuro: Negative for altered mental status, headache, weakness, 22:25 All other systems are negative, Exam: 22:10 Constitutional: The patient appears in no acute distress, alert, awake, non-toxic, well cp developed, well nourished, 22:10 Head/Face: Normocephalic, atraumatic. cp 22:10 Eyes: Periorbital structures: appear normal, Conjunctiva: normal, no exudate, no injection, Sclera: no appreciated abnormality, Lids and lashes: appear normal, bilaterally, 22:10 ENT: External ear(s): are unremarkable, Nose: is normal, Mouth: Lips: moist, Oral mucosa: moist, Posterior pharynx: Airway: no evidence of obstruction, patent, Tonsils: with erythema, with ulcerations, Uvula: midline, erythema, that is marked, 22:10 Neck: ROM/movement: Meningeal signs: are not present, Lymph nodes: lymphadenopathy is appreciated, anterior cervical nodes, 22:10 Chest/axilla: Inspection: normal, 22:10 Cardiovascular: Rate: tachycardic, 22:10 Respiratory: the patient does not display signs of respiratory distress, Respirations: normal, no use of accessory muscles, no retractions, labored breathing, is not present, Breath sounds: are clear throughout, no decreased breath sounds, no stridor, no wheezing, 22:10 Abdomen/GI: Inspection: abdomen appears normal, Vital Signs: 21:58 BP 125 / 73; Pulse 116; Resp 18 S; Temp 99(TE); Pulse Ox 96% on R/A; Weight 81.65 kg; jw7 Height 5 ft. 7 in. ; Pain 7/10; 23:59 BP 128 / 71; Pulse 105; Resp 16 S; Temp 98.8(TE); Pulse Ox 98% on R/A; jw7 21:58 Body Mass Index 28.19 (81.65 kg, 170.18 cm) [facility] 21:58 Pain Scale: Adult jw7 MDM: 22:04 Patient medically screened. cp 22:30 Differential diagnosis: group A strep tonsillitis, laryngitis, ashlee's angina, cp mononucleosis, peritonsillar abscess. 23:44 Data reviewed: vital signs, nurses notes, lab test result(s), and as a result, I will cp discharge patient. 23:44 Counseling: I had a detailed discussion with the patient and/or guardian regarding the cp historical points, exam findings, and any diagnostic results supporting the discharge/admit diagnosis, lab results, to return to the emergency department if symptoms worsen or persist or if there are any questions or concerns that arise at home. 08/24 22:12 Order name: Strep jw7 08/24 22:43 Order name: Throat Culture EDMS Administered Medications: No medications were administered Disposition Summary: 08/25/23 23:44 Discharge Ordered Notes: Location: Home cp Problem: new cp Symptoms: are unchanged cp Condition: Stable cp Diagnosis - Acute pharyngitis, unspecified cp Followup: cp - With: Private Physician - When: 2 - 3 days - Reason: Worsening of condition Discharge Instructions: - Discharge Summary Sheet cp - Pharyngitis cp - Sore Throat cp Forms: - Medication Reconciliation Form cp - Antibiotic Education cp - Prescription Opioid Use cp - Patient Portal Instructions cp - Leadership Thank You Letter cp Prescriptions: - Lidocaine Viscous - take 5 milliliter ORAL route every 4-6 hours As needed; 240 milliliter; cp Refills: 0, Product Selection Permitted - Amoxicillin 875 mg Oral Tablet - take 1 tablet ORAL route every 12 hours for 10 days; 20 tablet; Refills: 0, cp Product Selection Permitted - Ibuprofen 800 mg Oral Tablet - take 1 tablet ORAL route every 8 hours As needed take with food; 30 tablet; cp Refills: 0, Product Selection Permitted Addendum: 08/27/2023 00:21 Co-signature as Attending Physician, Shane Porras MD I agree with the assessment s p4 and plan of care. I reviewed the patient's care provided by the Advanced Practice Provider and agree with the diagnosis and treatment plan. Signatures: Dispatcher [employer] [facility] Humberto Walker PA PA cp Waits, Jodi, RN RN jw7 Shane Porras MD MD sp4
--- NOTE | 2023-08-25 23:44 | ER ---
Nurse's Notes [facility] Name: Marlene Gates Age: 22 yrs Sex: Female : 2000 Arrival Date: 08/25/2023 Time: 21:26 Bed IW1 Private MD: Diagnosis: Acute pharyngitis, unspecified Presentation: 08/24 21:58 Chief complaint: Patient states: I have a sore throat and body aches that started jw7 yesterday. My throat mainly hurts when I swallow. Coronavirus screen: At this time, the client does not indicate any symptoms associated with coronavirus-19. Ebola Screen: No symptoms or risks identified at this time. Initial Sepsis Screen: Does the patient meet any 2 criteria? No. Patient's initial sepsis screen is negative. Does the patient have a suspected source of infection? No. Patient's initial sepsis screen is negative. Risk Assessment: Do you want to hurt yourself or someone else? Patient reports no desire to harm self or others. Onset of symptoms was August 24, 2023. 21:58 Method Of Arrival: Ambulatory jw7 21:58 Acuity: KARLOS 4 jw7 Triage Assessment: 22:00 General: Appears in no apparent distress. uncomfortable, Behavior is calm, cooperative, jw7 appropriate for age. Pain: Complains of pain in throat and body aches Pain does not radiate. Pain currently is 7 out of 10 on a pain scale. Quality of pain is described as burning, Pain began 1 day ago. Is intermittent. EENT: Parent/caregiver reports the patient having pain when swallowing difficulty swallowing. Neuro: Level of Consciousness is awake, alert, obeys commands, Oriented to person, place, time, situation, Appropriate for age. Cardiovascular: Capillary refill < 3 seconds Clubbing of nail beds is absent JVD is absent Patient's skin is warm and dry. Respiratory: Airway is patent Trachea midline Respiratory effort is even, unlabored, Respiratory pattern is regular, symmetrical. GI: Abdomen is round non-distended, Bowel sounds present X 4 quads. Abd is soft and non tender X 4 quads. : No deficits noted. No signs and/or symptoms were reported regarding the genitourinary system. Derm: Skin is intact, is healthy with good turgor, Skin is dry, Skin is normal, Skin temperature is warm. Musculoskeletal: Circulation, motion, and sensation intact. Range of motion: intact in all extremities. 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 Flu vaccine is not up to date. - Infectious Disease History:: Denies. - Social history:: Smoking status: Patient denies any tobacco usage or history of. Patient/guardian denies using alcohol, street drugs, IV drugs. Screenin:03 [facility] ED Fall Risk Assessment (Adult) History of falling in the last 3 months, jw7 including since admission No falls in past 3 months (0 pts) Confusion or Disorientation No (0 pts) Intoxicated or Sedated No (0 pts) Impaired Gait No (0 pts) Mobility Assist Device Used No (0 pt) Altered Elimination No (0 pt) Score/Fall Risk Level 0 - 2 = Low Risk Oriented to surroundings, Maintained a safe environment, Educated pt \T\ family on fall prevention, incl call for assistance when getting out of bed. Abuse screen: Denies threats or abuse. Denies injuries from another. Nutritional screening: No deficits noted. Tuberculosis screening: No symptoms or risk factors identified. Assessment: 22:03 Respiratory: Airway is patent Trachea midline Respiratory effort is even, unlabored, jw7 Respiratory pattern is regular, symmetrical, Breath sounds are clear bilaterally. EENT: Throat is reddened. 23:00 Reassessment: Patient appears in no apparent distress at this time. No changes from jw7 previously documented assessment. Patient and/or family updated on plan of care and expected duration. Pain level reassessed. Patient is alert, oriented x 3, equal unlabored respirations, skin warm/dry/pink. 23:59 Reassessment: Patient appears in no apparent distress at this time. No changes from jw7 previously documented assessment. Patient and/or family updated on plan of care and expected duration. Pain level reassessed. Patient is alert, oriented x 3, equal unlabored respirations, skin warm/dry/pink. Vital Signs: 21:58 BP 125 / 73; Pulse 116; Resp 18 S; Temp 99(TE); Pulse Ox 96% on R/A; Weight 81.65 kg; jw7 Height 5 ft. 7 in. ; Pain 7/10; 23:59 BP 128 / 71; Pulse 105; Resp 16 S; Temp 98.8(TE); Pulse Ox 98% on R/A; jw7 21:58 Body Mass Index 28.19 (81.65 kg, 170.18 cm) jw7 21:58 Pain Scale: Adult jw7 ED Course: 21:29 Patient arrived in ED. mr 21:30 Humberto Walker PA is PHCP. cp 21:30 Shane Porras MD is Attending Physician. cp 22:00 Triage completed. jw7 22:00 Arm band placed on. jw7 22:03 Patient has correct armband on for positive identification. jw7 22:15 Strep Sent. jw7 08/25 00:00 Provided Education on: Need for Antibiotics. jw7 00:00 No provider procedures requiring assistance completed. Patient did not have IV access jw7 during this emergency room visit. Administered Medications: No medications were administered Medication: 00:00 VIS not applicable for this client. jw7 Outcome: 08/24 23:44 Discharge ordered by . cp 08/25 00:00 Discharged to home ambulatory, jw7 Condition: stable Discharge instructions given to patient, Instructed on discharge instructions, follow up and referral plans. medication usage, Demonstrated understanding of instructions, follow-up care, medications, Prescriptions given X 3, 00:00 Patient left the ED. jw7 Signatures: Ade Hooker, Reg Reg mr Humberto Walker PA PA cp Waits, Jodi RN RN jw7
[2023-08-26 01:05] VITALS: BP 128/71; TEMP 98.8; O2SAT 98
== END 2023-08-26 | disposition home or self-care (01) ==
LOC: ER 21:26
DX: J02.9 Acute pharyngitis, unspecified (principal); J45.909 Unspecified asthma, uncomplicated
CPT/HCPCS: 87070; 87081; 99283

== ENCOUNTER 2024-02-26 19:00 | Emergency (ER) | payer OTHER ==
--- NOTE | 2024-02-26 20:11 | RAD REPORT ---
EXAM:Ankle Right 3 View CLINICAL HISTORY: Ankle pain FINDINGS: No fracture or dislocation seen. Lateral soft tissue swelling
--- NOTE | 2024-02-26 20:23 | ER ---
Nurse's Notes [facility] Name: Marlene Gates Age: 23 yrs Sex: Female : 2000 Arrival Date: 02/26/2024 Time: 19:00 Bed IW1 Private MD: Diagnosis: Pain in right ankle and joints of right foot Presentation: 02/25 19:18 Chief complaint: Right ankle pain and swelling since last night, denies injury. hb Coronavirus screen: At this time, the client does not indicate any symptoms associated with coronavirus-19. Ebola Screen: No symptoms or risks identified at this time. Initial Sepsis Screen: Does the patient meet any 2 criteria? No. Patient's initial sepsis screen is negative. Does the patient have a suspected source of infection? No. Patient's initial sepsis screen is negative. Risk Assessment: Do you want to hurt yourself or someone else? Patient reports no desire to harm self or others. Onset of symptoms was February 25, 2024. 19:18 Method Of Arrival: Ambulatory hb 19:18 Acuity: KARLOS 4 hb Historical: - Allergies: 19:19 No Known Allergies; hb - Home Meds: 19:19 None [Active]; hb - PMHx: 19:19 Asthma; hb - PSHx: 19:19 None; hb - Immunization history:: Adult Immunizations up to date. - Infectious Disease History:: Denies. - Social history:: Smoking status: Patient denies any tobacco usage or history of. Vital Signs: 19:18 BP 122 / 80; Pulse 83; Resp 16; Temp 97.6(TE); Pulse Ox 100% on R/A; Weight 72.57 kg; hb Height 5 ft. 7 in. ; Pain 8/10; 19:18 Body Mass Index 25.06 (72.57 kg, 170.18 cm) hb 19:18 Pain Scale: Adult hb ED Course: 19:07 Patient arrived in ED. im 19:07 Mariella Kothari FNP-C is PHCP. kb 19:07 Humberto Ceja MD is Attending Physician. kb 19:19 Triage completed. hb 19:19 Arm band placed on. hb 20:07 Ankle Right 3 View XRAY In Process Unspecified. EDMS Administered Medications: No medications were administered Outcome: : Discharge ordered by . kb 20:34 Patient left the ED. hb Signatures: Dispatcher [employer] Mariella Cagle, ARLET HERNANDEZ-Ca Phipps, RN RN Ana Martin
--- NOTE | 2024-02-26 20:23 | EDPHYS ---
Physician Documentation [facility] Name: Marlene Gates Age: 23 yrs Sex: Female : 2000 Arrival Date: 02/26/2024 Time: 19:00 Bed IW1 Private MD: ED Physician Humberto Ceja HPI: 02/25 19:13 This 23 yrs old Female presents to ER via Unassigned with complaints of Right ankle kb pain. 19:13 Pt is a 23 year old female who presents for pain and swelling to right ankle that kb started last night. Denies injury or trauma. States she walked from [place] to [place]. Historical: - Allergies: 19:19 No Known Allergies; hb - Home Meds: 19:19 None [Active]; hb - PMHx: 19:19 Asthma; hb - PSHx: 19:19 None; hb - Immunization history:: Adult Immunizations up to date. - Infectious Disease History:: Denies. - Social history:: Smoking status: Patient denies any tobacco usage or history of. ROS: 19:13 Constitutional: As per HPI kb Exam: 19:53 Constitutional: This is a well developed, well nourished patient who is awake, alert, kb and in no acute distress. Head/Face: Normocephalic, atraumatic. ENT: Moist Mucous membranes Cardiovascular: Regular rate Respiratory: Respirations even and unlabored. No increased work of breathing. Talking in full sentences Skin: Warm, dry with normal turgor. Normal color. Neuro: Awake and alert, GCS 15, oriented to person, place, time, and situation. 19:53 Musculoskeletal/extremity: Extremities: grossly normal except: noted in the right ankle: pain, swelling, tenderness, ROM: intact in all extremities, Circulation is intact in all extremities. Sensation intact. Weight bearing: able to fully bear weight, Vital Signs: 19:18 BP 122 / 80; Pulse 83; Resp 16; Temp 97.6(TE); Pulse Ox 100% on R/A; Weight 72.57 kg; hb Height 5 ft. 7 in. ; Pain 8/10; 19:18 Body Mass Index 25.06 (72.57 kg, 170.18 cm) hb 19:18 Pain Scale: Adult hb MDM: 19:07 Medical Screening Exam initiated kb 19:53 Differential diagnosis: sprain, fracture. Data reviewed: vital signs, nurses notes. kb Historians other than the Patient: Friend: friend. 20:17 Counseling: I had a detailed discussion with the patient and/or guardian regarding the kb historical points, exam findings, and any diagnostic results supporting the discharge/admit diagnosis, radiology results, the need for outpatient follow up, a family practitioner, to return to the emergency department if symptoms worsen or persist or if there are any questions or concerns that arise at home. 02/25 19:16 Order name: Ankle Right 3 View XRAY; Complete Time: 20:17 kb 02/25 20:22 Order name: Robles Wrap; Complete Time: 20:34 kb 02/25 20:22 Order name: Ice pack; Complete Time: 20:34 kb Administered Medications: No medications were administered Disposition Summary: 02/26/24 20:23 Discharge Ordered Notes: Location: Home kb Condition: Stable kb Diagnosis - Pain in right ankle and joints of right foot kb Followup: kb - With: Emergency Department - When: As needed - Reason: Worsening of condition Followup: kb - With: Private Physician - When: 2 - 3 days - Reason: Recheck today's complaints, Continuance of care, Re-evaluation by your physician Discharge Instructions: - Discharge Summary Sheet kb - Ankle Sprain, [id number] kb - Ankle Pain kb Forms: - Medication Reconciliation Form kb - Antibiotic Education kb - Prescription Opioid Use kb - Patient Portal Instructions kb - Leadership Thank You Letter kb Addendum: 02/29/2024 12:41 Co-signature as Attending Physician, Humberto Ceja MD I agree with the assessment and c gamez plan of care. Signatures: Dispatcher [employer] Mariella Cagle, [employer]C [employer]-Humberto Schafer MD MD cha Baxter, Heather, RN RN
[2024-02-26 20:50] VITALS: BP 122/80; TEMP 97.6; O2SAT 100
== END 2024-02-26 20:34 | disposition home or self-care (01) ==
LOC: ER 19:00
DX: M25.571 Pain in right ankle and joints of right foot (principal)
CPT/HCPCS: 99281